=== PATIENT | male | born 1990 | race Caucasian/White ===

== ENCOUNTER 2018-11-01 23:22 | Emergency (ER) | payer SELFPAY ==
[2018-11-01 23:23] VITALS: BP 163/84; PULSE 88; RESP 18; TEMP 37; O2SAT 95; BMI 51.5
--- NOTE | 2018-11-02 00:21 | ED.DCSUM_ITS ---
- ER Visit Summary Date of Service: 11/02/18 Chief Complaint: Cough History of Present Illness: The patient is a 28 M who presents with a cough. Cough is been present for about 2 weeks. Over the last 3-4 days he is also developed muscle aches joint aches and diarrhea. He had a headache this morning that then improved today but is starting to come back. He currently rates his headache as a 5 or 6 out of 10. He complains of subjective fevers and sore throat. No chest pain no shortness of breath no vomiting or diarrhea. Physical Examination: Afebrile vitals notable for blood pressure 163/89 Moist mucous membranes Neck supple Heart regular rate and rhythm Lungs are clear Abdomen soft nontender Patient diaphoretic Alert Test Results: CBC BMP unremarkable. Rapid influenza negative. Chest x-ray normal. Emergency Department Course and Treatment: Patient was treated with IV fluids and Toradol. He is significantly improved on reevaluation. His headache is nearly resolved. He is resting comfortably. I discussed that this is most likely related to a viral syndrome. He was advised on supportive care. He understands to return for new or worsening symptoms. He was discharged. Treatment Plan: [] Disposition: Discharge Impression: Bronchitis This note was generated with [employer] dictation software. It may contain incorrect words, spelling, and punctuation that were not noted in review of the chart prior to signing ED Disposition - Plan for ED Patient: Referrals: Mj Monteiro MD [Primary Care Provider] -
[2018-11-02] MEDS: Ketorolac 30 MG/ML Syringe IV (00:36)
[2018-11-02] MEDS: 0.9% Normal Saline 1,000 ML 999 ML IV (00:36)
[2018-11-02 00:37] VITALS: RESP 18
[2018-11-02 00:41] LABS: Absolute Neutrophil Count 5.4 X10^3/uL (2.0-7.7); Basophil# 0.03 X10^3/uL; Basophil% 0.3 % (0-1); Eosinophil# 0.33 X10^3/uL; Eosinophils% 3.6 % (0-5); Hematocrit 43.8 % (40-54); Hemoglobin 14.3 g/dl (13.0-16.5); Lymphocyte % 30.6 % (19-41); Mean Corp Hgb Conc 32.6 g/gl (32-36); Mean Corpuscular Hgb 27.9 pg (27.0-32.0); Mean Corpuscular Volume 85.4 fL (80-94); Mean Platelet Vol. 9.8 fl (6.2-12.0); Monocyte# 0.54 X10^3/uL; Monocyte% 5.9 % (0-10); Neutrophil # 5.44 X10^3/uL (2.7-7.7); Neutrophil % 59.4 % (47-70); POSITIVE COUNT NO; POSITIVE DIFFERENTIAL NO; POSITIVE MORPHOLOGY NO; Platelet Count 167 K/mm3 (150-450); RBC Distribution Width CV 13.3 % (11.6-14.6); RBC Distribution Width SD 41.2 fl (35.1-43.9); Red Blood Count 5.13 M/mm3 (4.6-6.2); White Blood Count 9.2 K/mm3 (4.4-11.0)
--- NOTE | 2018-11-02 00:45 | RAD_ITS ---
STUDY: X-RAY CHEST REASON FOR EXAM: Male, 28 years old. Cough TECHNIQUE: 2 view COMPARISON: June 21, 2016 FINDINGS: The lungs are clear and expanded. There is no demonstrated pleural abnormality. Normal size heart. Normal mediastinum and sandra. Normal visualized pulmonary arteries. Normal visualized aortic arch and descending thoracic aorta. Normal visualized thoracic spine. Normal visualized ribs, clavicles, and shoulders. There is no demonstrated abnormality of the visualized soft tissue structures of the upper abdomen. RAD/Chest PA and Lateral IMPRESSION: Normal x-ray examination of the chest. No acute findings in the lungs Electronically Signed: Louis Nathan MD at 1:31 EDT Tel , Service support ,
[2018-11-02 01:08] LABS: BUN 15 mg/dL (7-18); Creatinine, Serum 0.81 mg/dL (0.70-1.30); EST Glomerular Filtration Rate 119 mL/min (>60); Est Glom Filt Rate - Afr Amer 144 mL/min (>60); Glucose 101 mg/dL (74-106)
[2018-11-02 01:09] LABS: Anion Gap 4 (5-15); BUN/Creat Ratio 18.4 RATIO (10-20); Calcium,Total 8.5 mg/dL (8.5-10.1); Chloride 110 mmol/L (98-107); Potassium 4.5 mmol/L (3.5-5.1); Sodium Level 139 mmol/L (136-145)
--- NOTE | 2018-11-02 02:00 | ED.DEP ---
ED Disposition - Plan for ED Patient: Instructions: Acute Bronchitis Referrals: Mj Monteiro MD [Primary Care Provider] -
[2018-11-02 02:06] VITALS: BP 110/59; PULSE 71; RESP 18; O2SAT 96
== END 2018-11-02 02:07 | disposition home or self-care (01) ==
LOC: ED 11-02 00:23
PROVIDERS: Emergency Provider Emergency Medicine; Family Provider Family Medicine; PCP Family Medicine
DX: J40 Bronchitis, not specified as acute or chronic (principal); Z68.43 Body mass index [BMI] 50.0-59.9, adult; E66.9 Obesity, unspecified; Z72.0 Tobacco use
CPT/HCPCS: 71046; 80048; 85025; 87804; 96361; 96374; 99284; A4216

== ENCOUNTER 2020-03-20 20:03 | Emergency (ER) | payer SELFPAY ==
[2020-03-20 20:04] VITALS: BP 165/106; PULSE 111; RESP 22; TEMP 36.6; O2SAT 96; BMI 55.7
--- NOTE | 2020-03-20 20:06 | EKG12_ITS ---
Test Reason : CP Blood Pressure : / mmHG Vent. Rate : 110 BPM Atrial Rate : 110 BPM P-R Int : 158 ms QRS Dur : 094 ms QT Int : 334 ms P-R-T Axes : 028 048 036 degrees QTc Int : 452 ms Sinus tachycardia Otherwise normal ECG Confirmed by MIQUEL SANCHEZ, VICKY ([id number]), desk editor KELLEY PARKER ([id number]) on 03/23/2020 2:34:32 PM Referred By: BB Confirmed By:VICKY LAFLEUR MD
--- NOTE | 2020-03-20 20:20 | RAD_ITS ---
STUDY: X-RAY CHEST REASON FOR EXAM: Male, 29 years old. chest pain x 2 hrs TECHNIQUE: Single AP portable view of the chest. COMPARISON: Prior study of 11/02/2018 FINDINGS: The lungs are clear and expanded. There is no demonstrated pleural abnormality. Normal size heart. Normal mediastinum and sandra. Normal visualized pulmonary arteries. Normal visualized aortic arch and descending thoracic aorta. Normal visualized thoracic spine. Normal visualized ribs, clavicles, and shoulders. There is no demonstrated abnormality of the visualized soft tissue structures of the upper abdomen. RAD/Chest 1 View (Portable) IMPRESSION: Normal x-ray examination of the chest. Electronically Signed: Declan Goodrich MD at 20:30 EDT , Service support ,
[2020-03-20 20:28] LABS: Absolute Neutrophil Count 6.3 X10^3/uL (2.0-7.7); Basophil# 0.04 X10^3/uL; Basophil% 0.4 % (0-1); Eosinophil# 0.28 X10^3/uL; Eosinophils% 2.8 % (0-5); Hematocrit 43.7 % (40-54); Hemoglobin 13.8 g/dL (13.0-16.5); Lymphocyte % 30.5 % (19-41); Mean Corp Hgb Conc 31.6 g/dL (32-36); Mean Corpuscular Hgb 27.2 pg (27.0-32.0); Mean Corpuscular Volume 86.2 fL (80-94); Mean Platelet Vol. 9.3 fl (6.2-12.0); Monocyte# 0.44 X10^3/uL; Monocyte% 4.3 % (0-10); NRBC Flagged by Analyzer 0 % (0-5); Neutrophil # 6.27 X10^3/uL (2.7-7.7); Neutrophil % 61.7 % (47-70); Platelet Count 159 K/mm3 (150-450); RBC Distribution Width CV 13.7 % (11.6-14.6); RBC Distribution Width SD 42.7 fl (35.1-43.9); Red Blood Count 5.07 M/mm3 (4.6-6.2); White Blood Count 10.2 K/mm3 (4.4-11.0)
--- NOTE | 2020-03-20 20:44 | ED.VIS.CHEST ---
History of Present Illness Chief Complaint: Chest Pain Informant: Patient Onset: Hours - 1 Activity at onset: - - Getting out of my truck Timing: - - Sudden onset, continuous, improving to the point of being off and on Quality: Sharp, Stabbing - Without radiation Location: Substernal Current Severity: Mild Maximum Severity: Severe Worsened By: Nothing, Breathing - Maybe a little while on my way here, not sure Relieved By: Nothing Associated Symptoms: Dyspnea, Acid Reflux - Metal taste in throat/mouth. Negative for: Nausea, Vomiting, Diaphoresis, Lightheadedness Narrative: Patient had severe sudden onset sharp stabbing pain. He felt a little short of breath. No recent illnesses. Patient presents during the national coronavirus emergency declaration/pandemic. He denies any known contact with anyone infected with COVID-19. He denies traveling out of the immediate area recently. He has a chronic smoker's cough that is no worse than usual, nonproductive, no hemoptysis. No leg pain or swelling recently. He has had acid reflux before but nothing like this. Prior Similar Symptoms: No Recent Illness/Hospitalization: No CVD Risk Factors: Smoking. Negative for: Hypertension, Diabetes, Hypercholesterolemia, Family History 1' </=55 PE Risk Factors: Negative for: Recent Travel/Surgery, Recenet Immobilization, Prior DVT or PE, Cancer, OCP + Smoking + >/=35 - Past Medical History (1) Obesity Status: Chronic (2) Sleep apnea Status: Chronic Past Medical History - Allergies and Home Meds Allergies/Adverse Reactions: Allergies No Known Allergies Allergy (Verified 03/20/20 20:05) Primary Care Physician: Mj Monteiro MD [Primary Care Provider] - Surgical History: no surgical history Lives: Spouse/ Significant Other Smoking Status: Current every day smoker Alcohol: Occasional - Couple beers earlier today Drugs: Cocaine - In the past, not recent - Family History Paternal Family History: Reports: No pertinent history Review of Systems General: Denies: Chills, Fever, Sweats Eyes: Denies: Visual changes - bilaterally, Diplopia ENT: Denies: Rhinorrhea, Sore throat Cardiovascular: Reports: Chest pain. Denies: Palpitations Respiratory: Reports: Dyspnea - Resolved, Cough - Chronic, unchanged. Denies: Sputum, Dyspnea on exertion, Orthopnea Gastrointestinal: Denies: Abdominal pain, Nausea, Vomiting, Diarrhea, Melena, Hematochezia Genitourinary: Denies: Dysuria, Hematuria, Frequency Musculoskeletal: Denies: Back pain, Swelling, Extremity Pain Skin: Denies: Rash, Wounds Neurological: Denies: Headache, Weakness, Numbness Physical Exam Vital Signs/Narrative: Vital Signs Temp Pulse Resp BP Pulse Ox 03/20/20 20:04 97.9 F 111 H 22 H 165/106 H 96 Inital Vital Signs reviewed: Yes General: Well nourished, Well developed, Obese - Really, No Acute Distress Head: Normocephalic, Atraumatic Eyes: Perrl, EOMI ENT: Moist mucous membranes, No rhinorrhea Neck: Supple, Nontender Cardiovascular: Regular rate, Regular rhythm, No murmurs, - - Equal 2+/4 radial pulses Respiratory: No distress, CTA bilaterally, Chest nontender Abdomen: Soft, Nontender, Nondistended, Normal bowel sounds Back: Nontender, Normal Inspection. Negative for: CVA tenderness Extremities: Nontender, No edema. Negative for: Calf Tenderness Skin: Normal color, No rash Neurological: Alert, Oriented x3, Cranial nerves II-XII grossly intact, Normal Strength, Normal Sensation Psychological: Normal affect, Normal Mood Diagnostic/Tx/Re-eval Impressions Chest X-Ray 03/20/20 20:20 IMPRESSION: Normal x-ray examination of the chest. Electronically Signed: Declan Goodrich MD at 20:30 EDT , Service support , Chest CTA 03/20/20 21:32 IMPRESSION: Normal CTA chest examination, without a demonstrated pulmonary embolism or arterial dissection. The study is limited secondary to suboptimal opacification of the pulmonary arterial system. Hepatic steatosis is noted. Electronically Signed: Declan Goodrich MD at 22:24 EDT , Service support , 03/20/20 20:20 Chest 1 View (Portable) [RAD] Stat 03/20/20 21:32 CTA Chest W/WO Contrast [CT] Stat Laboratory Results 03/20/20 03/20/20 03/20/20 20:18 20:18 21:05 WBC 10.2 RBC 5.07 Hgb 13.8 Hct 43.7 MCV 86.2 MCH 27.2 MCHC 31.6 L RDW Std Deviation 42.7 RDW Coeff of Kenneth 13.7 Plt Count 159 MPV 9.3 Immature Gran % (Auto) 0.300 Neut % (Auto) 61.7 Lymph % (Auto) 30.5 Sweet [place] % (Auto) 4.3 Eos % (Auto) 2.8 Baso % (Auto) 0.4 Absolute Neuts (auto) 6.3 Absolute Lymphs (auto) 3.10 Nucleated RBC % 0 PT 13.2 INR 1.0 D-Dimer Quant (PE/DVT) 0.62 H* Sodium 141 Potassium 3.6 Chloride 111 H Carbon Dioxide 25.0 Anion Gap 5 BUN 11 Creatinine 0.86 Estim Creat Clear Calc 133.77 Est GFR (MDRD) Af Amer 134 Est GFR (MDRD) Non-Af 111 BUN/Creatinine Ratio 12.8 Glucose 106 Calcium 8.9 Troponin I < 0.015 - Rhythm Strip Rhythm Strip: Sinus Tach Rate: 110 - EKG Initial EKG Interpretation: No Acute Injury Pattern, Sinus Tachycardia Treatment: GI Cocktail Repeat Eval: Pain Free [place] Risk: No Positive [place] Elements Score: 0 - Medical Decision Making Patient feels much better after GI cocktail, however his d-dimer came back nonspecifically elevated, therefore CT angiography was performed and that is unremarkable, essentially ruling out large pulmonary emboli. I do not think he has a small peripheral pulmonary embolus causing the central chest discomfort. Therefore think it is reasonable to discharge him home with a 2-week course of a PPI and close outpatient follow-up, questions answered at the bedside and they are comfortable with that plan. Of note, after the work-up was performed he learned that he was potentially inhaling some fumes from some chemicals but that was about an hour prior to the onset of pain, I reassured him I think is probably unrelated. ED Disposition - Plan for ED Patient: Disposition: Home or Assisted Living Diagnosis: Chest pain, atypical Instructions: ED Chest Pain NonCardiac Prescriptions: Pantoprazole Sodium [Protonix] 40 mg PO DAILY #14 tab Transmission Status: Pending to [facility]/pharmacy #[id number] Referrals: Mj Monteiro MD [Primary Care Provider] - 1 Week if not improving
[2020-03-20 20:49] LABS: Anion Gap 5 (5-15); BUN 11 mg/dL (7-18); BUN/Creat Ratio 12.8 RATIO (10-20); Calcium,Total 8.9 mg/dL (8.5-10.1); Chloride 111 mmol/L (98-107); Creatinine, Serum 0.86 mg/dL (0.70-1.30); EST Glomerular Filtration Rate 111 mL/min (>60); Est Glom Filt Rate - Afr Amer 134 mL/min (>60); Estimated Creatinine Clearance 133.77 ml/min; Glucose 106 mg/dL (74-106); Potassium 3.6 mmol/L (3.5-5.1); Sodium Level 141 mmol/L (136-145)
[2020-03-20] MEDS: Mag Hydrox/Al Hydrox/Simeth 30 ML UDC PO (20:59)
[2020-03-20 21:03] VITALS: BP 136/82; PULSE 95; RESP 12; O2SAT 96
[2020-03-20 21:25] LABS: Prothrombin Time (Protime)PT. 13.2 SECONDS (11.7-14.9)
[2020-03-20 21:30] LABS: D-Dimer Quantitative (DVT/PE) 0.62 FEU/ug/m (0.27-0.49)
--- NOTE | 2020-03-20 21:32 | CT_ITS ---
STUDY: CTA CHEST REASON FOR EXAM: Male, 29 years old. 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 Post-processing of the angiographic images was performed, with multiplanar reformation and 3D reconstruction. Individualized dose optimization techniques were used for this CT. COMPARISON: None. FINDINGS: There is limited enhancement of the main pulmonary artery and right and left pulmonary arteries. There is limited enhancement of the bilateral peripheral pulmonary arteries. There is no demonstrated pulmonary embolism. Normal thoracic aorta and visualized great vessels. There is no demonstrated aortic dissection. Normal heart and pericardium. Normal mediastinum. Normal hilar regions. Normal visualized trachea and bronchi. The lungs are well expanded. Normal pulmonary parenchyma. Normal pleura. Normal chest wall structures. Normal osseous structures. There is hepatic steatosis. CT/CTA Chest W/WO Contrast IMPRESSION: Normal CTA chest examination, without a demonstrated pulmonary embolism or arterial dissection. The study is limited secondary to suboptimal opacification of the pulmonary arterial system. Hepatic steatosis is noted. Electronically Signed: Declan Goodrich MD at 22:24 EDT , Service support ,
[2020-03-20 22:29] VITALS: BP 142/74; PULSE 84; RESP 13; O2SAT 95
[2020-03-20 23:08] VITALS: BP 125/54; PULSE 88; RESP 16; O2SAT 95
[2020-03-20 23:10] VITALS: BP 125/54; PULSE 88; RESP 15; O2SAT 96
[2020-03-20] MEDS: Pantoprazole Sodium 40 MG Tablet PO (23:27)
== END 2020-03-20 23:27 | disposition home or self-care (01) ==
PROVIDERS: Emergency Provider Emergency Medicine; PCP Family Medicine
DX: R07.89 Other chest pain (principal); E66.9 Obesity, unspecified
CPT/HCPCS: 71045; 71275; 80048; 84484; 85025; 85379; 85610; 93005; 99285; J7030; Q9967; A4216

== ENCOUNTER 2020-10-26 00:05 | Emergency (ER) | payer MEDICAID, SELFPAY ==
[2020-10-26 00:05] VITALS: BP 140/87; PULSE 94; RESP 18; TEMP 36.7; O2SAT 96; BMI 57.2
--- NOTE | 2020-10-26 00:09 | ED.VIS.GEN ---
History of Present Illness Chief Complaint: Lower Extremity Injury Informant: Patient Onset: Days Context: Gradual Onset Timing: Continuous Current Severity: Moderate Maximum Severity: Moderate Narrative: Patient is a 30-year-old male with history of GERD and obesity who presents to the emergency department with right lower extremity pain. He states over the past 3 days, he had some swelling in the leg. He states it started in the foot. Since then, he had some pain in the calf. He denies chest pain or shortness of breath. He states he was concerned he may have a blood clot. The patient has no history of prior DVT or pulmonary embolus. There is no family history of coagulopathy. He denies any trauma. He denies any fevers or chills. Prior similar symptoms: No Recent Illness/Hospitalization: No Past Medical History - Allergies and Home Meds Allergies/Adverse Reactions: Allergies No Known Allergies Allergy (Verified 03/20/20 20:05) Primary Care Physician: NOT,DEFINED [NON-STAFF] - Prior records reviewed: Yes Past Medical History: None Surgical History: no surgical history Smoking Status: Current every day smoker - Family History Paternal Family History: Reports: No pertinent history Review of Systems General: Denies: Chills, Fever, Sweats Eyes: Denies: Visual changes - bilaterally, Diplopia ENT: Denies: Rhinorrhea, Sore throat Cardiovascular: Denies: Chest pain, Palpitations Respiratory: Denies: Dyspnea, Cough, Dyspnea on exertion Gastrointestinal: Denies: Abdominal pain, Nausea, Vomiting, Diarrhea, Melena, Hematochezia Genitourinary: Denies: Dysuria, Hematuria, Frequency Musculoskeletal: Denies: Back pain, Extremity Pain Skin: Denies: Rash, Wounds Neurological: Denies: Headache, Weakness, Numbness Physical Exam Vital Signs/Narrative: Vital Signs Temp Pulse Resp BP Pulse Ox 10/26/20 00:05 98.0 F 94 18 140/87 H 96 Inital Vital Signs reviewed: Yes General: Well nourished, Well developed, No Acute Distress Head: Normocephalic, Atraumatic Eyes: Perrl, EOMI ENT: Moist mucous membranes, No rhinorrhea Neck: Supple, Nontender Cardiovascular: Regular rate, Regular rhythm, No murmurs Respiratory: No distress, CTA bilaterally, Chest nontender Abdomen: Soft, Nontender, Nondistended, Normal bowel sounds Back: Nontender, Normal Inspection Extremities: Tenderness - Patient is some tenderness in the posterior calf. There are multiple varicosities. There is no cellulitis. His pulses are normal. Skin: Normal color, No rash Neurological: Alert, Oriented x3, Cranial nerves II-XII grossly intact, Normal Strength, Normal Sensation Psychological: Normal affect, Normal Mood Diagnostic/Tx/Re-eval - Medical Decision Making Patient presents with right calf pain. He does have multiple varicosities and some tenderness in his calf. There is no cellulitis. His pulses are normal. Unfortunately, I do not have ultrasound available for DVT rule out at this time at night. I did obtain a D-dimer. This was within normal limits. I do not feel the patient needs acutely anticoagulated. The patient will be brought back for formal ultrasound in the morning for better delineation of his varicosities and to make sure he does not have a superficial phlebitis. He is comfortable with this plan of care. Impression 1. Right lower extremity edema ED Disposition - Plan for ED Patient: Instructions: ED Peripheral Edema, Bilateral Referrals: NOT,DEFINED [NON-STAFF] -
== END 2020-10-26 01:13 | disposition home or self-care (01) ==
LOC: ED 00:28
PROVIDERS: Emergency Provider Emergency Medicine
DX: R60.0 Localized edema (principal); M79.661 Pain in right lower leg; E66.9 Obesity, unspecified; F17.200 Nicotine dependence, unspecified, uncomplicated; Z68.43 Body mass index [BMI] 50.0-59.9, adult
CPT/HCPCS: 36415; 85379; 99282

== ENCOUNTER → 2020-10-27 14:27 | Outpatient (CLI) | payer MEDICAID, SELFPAY ==
[2020-10-26 00:05] VITALS: BMI 57.2
--- NOTE | 2020-10-27 14:30 | VDLE_ITS ---
Reason For Study: SWELLING RIGHT LEFT GSV is normal. GSV is normal. CFV is compressible, spontaneous, phasic, CFV is compressible, spontaneous, phasic, competent and demonstrates normal competent, and demonstrates normal augmentation. augmentation. FV is compressible, spontaneous, phasic, FV is compressible, spontaneous, phasic, competent and demonstrates normal competent and demonstrates normal augmentation. augmentation. POP V is compressible, spontaneous, phasic, POP V is compressible, spontaneous, phasic, competent and demonstrates normal competent and demonstrates normal augmentation. augmentation. T/P Trunk is compressible. T/P Trunk is compressible. PTV is compressible. PTV is compressible. RT PerV is compressible. LT PerV is compressible. Procedure This is a venous duplex using B-mode, color flow and spectral Doppler. Exam performed in department. The exam was diagnostic. Interpretation Summary No evidence for acute deep venous thrombosis bilateral lower extremities with patent and compressible bilateral great saphenous veins. Ordering Physician: Mekhi Garces Performed By: Minor Mejias RVT
== END ==
PROVIDERS: Visit Provider Emergency Medicine
DX: M79.89 Other specified soft tissue disorders (principal)
CPT/HCPCS: 93970

== ENCOUNTER 2020-12-28 23:16 | Emergency (ER) | payer MEDICAID, SELFPAY ==
[2020-12-28 23:18] VITALS: BP 148/90; PULSE 107; RESP 18; TEMP 36.3; O2SAT 94; BMI 59.5
--- NOTE | 2020-12-28 23:25 | RAD_ITS ---
STUDY: X-RAY - LEFT CALCANEUS REASON FOR EXAM: Male, 30 years old. Trauma. Jumped now having left heel pain. TECHNIQUE: 2 view(s) of the calcaneus were obtained. COMPARISON: None. FINDINGS: Normal visualized calcaneus. There is no acute fracture, dislocation or destructive osseous pathology. The subtalar articulation is normal. Normal soft tissue. RAD/Calcaneus min 2 Views IMPRESSION: Normal x-ray examination of the left calcaneus. Electronically Signed: Lee Crews DO at 23:48 EDT Tel [phone], Service support ,
--- NOTE | 2020-12-28 23:27 | ED.VIS.LOWEX ---
HPI History of Present Illness Chief Complaint: Lower Extremity Injury Narrative Narrative: Patient presents to the emergency department with left calcaneus pain and ankle pain after twisting it while trying to put a new liner on a swimming pool. No knee pain. No other injury. He is able to ambulate but with pain. PFSH PFS Home Medications NK 10/26/20 [History Last Taken Unknown] Allergy/AdvReac Type Severity Reaction Status Date / Time No Known Allergies Allergy Verified 03/20/20 20:05 Social History Smoking Status: Current every day smoker ROS ROS ED ROS Narrative Past medical history: none Medications: Reviewed Social history: Noncontributory Review of systems: Musculoskeletal: Calcaneus and ankle pain as in HPI Skin: No abrasions or lacerations Neurological: No weakness or paresthesias Hematologic: No easy bleeding or easy bruising EXAM Physical Exam Narrative Exam Narrative: Physical exam General: Patient is lying comfortably in bed Head: Normocephalic, Atraumatic Neck: No C-spine tenderness Cardiovascular: Regular rate, Regular rhythm Respiratory: No distress, CTA bilaterally Back: Nontender, Normal Inspection. Extremities: There is tenderness over the calcaneus but did not appreciate any pain when I laterally press on the calcaneus. There is also some ankle pain however this is diffuse throughout. Skin: No abrasions, no lacerations Neurological: Normal strength and sensation Const Vital Signs: 12/28/20 23:18 Temperature 97.4 F L Temperature Source Temporal Pulse Rate 107 H Respiratory Rate 18 Blood Pressure 148/90 H Blood Pressure Mean 109 Pulse Ox 94 Oxygen Delivery Method Room Air MDM MDM MDM Narrative Medical decision making narrative: Patient has normal x-rays. I will give him crutches and refer to podiatry since he had apparently has had calcaneus pain over the past few months. It is not at the plantar fascia insertion it is mostly in the middle of the calcaneus. Radiography Diagnostic Testing: Radiology Impression Os Calcis X-ray 12/28/20 23:25 IMPRESSION: Normal x-ray examination of the left calcaneus. Electronically Signed: Lee Crews DO at 23:48 EDT Tel [phone], Service support , Ankle X-Ray 12/28/20 23:29 IMPRESSION: Normal x-ray examination of the ankle. Electronically Signed: Lee Crews DO at 23:48 EDT Tel [phone], Service support , X-ray of the calcaneus and ankle read by myself and the radiologist does not show any fracture. Discharge Plan Triage Chief Complaint: Lower Extremity Injury ED Provider: Viraj Schofield Dx/Rx/DC Orders Prescriptions: No Action NK RF: 0 Primary Care Provider: Care Physician,No Primary
--- NOTE | 2020-12-28 23:29 | RAD_ITS ---
STUDY: X-RAY - LEFT ANKLE REASON FOR EXAM: Male, 30 years old. Trauma. TECHNIQUE: 3 view(s) of the ankle. COMPARISON: None. FINDINGS: Normal visualized distal tibia and fibula. Normal medial and lateral malleoli. Normal tibiotalar articulation and ankle mortise. Normal visualized talus and calcaneus. The visualized subtalar, talonavicular, calcaneocuboid and tarsal articulations are normal. The soft tissue structures are unremarkable. RAD/Ankle min 3 Views IMPRESSION: Normal x-ray examination of the ankle. Electronically Signed: Lee Crews DO at 23:48 EDT Tel [phone], Service support ,
[2020-12-29 00:11] VITALS: BP 138/71; PULSE 100; RESP 17; O2SAT 98
== END 2020-12-29 00:12 | disposition home or self-care (01) ==
PROVIDERS: Emergency Provider Emergency Medicine
DX: M79.672 Pain in left foot (principal)
CPT/HCPCS: 73610; 73650; 99283

== ENCOUNTER 2021-02-15 19:52 | Emergency (ER) | payer MEDICAID, SELFPAY ==
[2021-02-15 19:53] VITALS: BP 147/93; PULSE 116; RESP 20; TEMP 36.7; O2SAT 97; BMI 58.4
--- NOTE | 2021-02-15 20:11 | EKG12_ITS ---
Test Reason : DYSRHYTHMIA Blood Pressure : / mmHG Vent. Rate : 107 BPM Atrial Rate : 107 BPM P-R Int : 154 ms QRS Dur : 094 ms QT Int : 320 ms P-R-T Axes : 033 055 044 degrees QTc Int : 427 ms Sinus tachycardia Otherwise normal ECG Confirmed by CLAUDETTE SANCHEZ, ELIZABETH ([id number]), editor book BHUPINDER LOYOLA ([id number]) on 02/17/2021 11:48:28 AM Referred By: JOSHUA Confirmed By:ELIZABETH WILKINS MD
--- NOTE | 2021-02-15 20:12 | CT_ITS ---
STUDY: CTA CHEST REASON FOR EXAM: Male, 30 years old. Dyspnea. Shortness of breath for 5 days. Cough. Short substernal pain current everyday smoker. RADIATION DOSAGE (If Supplied By Facility): CTDIvol = ( 19.74 ) mGy, DLP = ( 755.52 ) mGycm TECHNIQUE: The examination was performed with the intravenous administration of IV 100mL Isovue-370. Post-processing of the angiographic images was performed, with multiplanar reformation and 3D reconstruction. Individualized dose optimization techniques were used for this CT. COMPARISON: None. FINDINGS: The study is limited due to patient habitus. Normal enhancement of the main pulmonary artery and right and left pulmonary arteries. Normal enhancement of the bilateral peripheral pulmonary arteries. There is no demonstrated pulmonary embolism. Normal thoracic aorta and visualized great vessels. There is no demonstrated aortic dissection. Normal heart and pericardium. Normal mediastinum. Normal hilar regions. Normal visualized trachea and bronchi. The lungs are well expanded. Normal pulmonary parenchyma. Normal pleura. Normal chest wall structures. Normal osseous structures. The spleen is enlarged but uniform in density. CT/CTA Chest W/WO Contrast IMPRESSION: 1. Normal CTA chest examination, without a demonstrated pulmonary embolism or arterial dissection. 2. No acute pulmonary disease. 3. Splenomegaly. The etiology is uncertain. Electronically Signed: Lee Crews DO at 21:44 EDT Tel [phone], Service support ,
--- NOTE | 2021-02-15 20:16 | ED.VIS.DYS ---
HPI History of Present Illness Chief Complaint: Shortness of Breath Informant: patient Onset/Context/Timing Onset: Days (5) Context: gradual Timing: Continuous Quality: Positive for Orthopnea Worsened by: - (Heat) Relieved by: - (Cool air) Associated Symptoms cough, rhinorrhea and yellow sputum; Negative for fever, sore throat or chills Narrative Narrative: Patient presents with shortness of breath that has been getting worse over the past 5 days. Patient states it is slightly worse whenever he lays flat. Patient states that his breathing is worse when he goes out in the heat. Patient states he gets better when he is in the cool air. Patient admits to a cough with some yellow sputum. Patient denies any fevers or chills. Patient states he has some sharp pain in the substernal area. Patient states this is worse with deep breathing. Patient denies any nausea or vomiting. Patient does admit to some rhinorrhea. PFSH PFSH no medical history Home Medications albuterol sulfate [Ventolin HFA] 1 - 2 puff INHALATION Q4H PRN PRN #1 inhaler 02/15/21 [Rx Last Taken Unknown] Allergy/AdvReac Type Severity Reaction Status Date / Time No Known Allergies Allergy Verified 02/15/21 19:55 no surgical history Social History Smoking Status: Current every day smoker tobacco type: cigarettes ROS ROS ED Constitutional Constitutional ED: Denies chills or fever(s) Eyes Eyes: Denies blurry vision or change in vision ENT ENT ED: Reports rhinorrhea; Denies sore throat Cardiovascular Cardiovascular: Reports chest pain; Denies palpitations Respiratory/Chest Respiratory/Chest: Reports cough, dyspnea and sputum Gastrointestinal Gastrointestinal: Denies nausea or vomiting Genitourinary Genitourinary ED: Denies dysuria or hematuria Musculoskeletal Musculoskeletal: Reports back pain; Denies neck pain Integumentary Denies abscess or rash Neurologic Neurologic: Reports headache(s); Denies weakness Allergic/Immunologic Allergic/Immunologic ED: Denies mouth swelling or urticaria EXAM Physical Exam Const Vital Signs: 02/15/21 19:53 02/15/21 20:18 02/15/21 20:25 Temperature 98.1 F Temperature Source Temporal Pulse Rate 116 H 118 H Respiratory Rate 20 H 22 H Respiratory Effort Short of Breath Short of Breath Respiratory Depth Shallow Respiratory Pattern Tachypnea Tachypnea Blood Pressure 147/93 H Blood Pressure Mean 111 Pulse Ox 97 95 Oxygen Delivery Method Room Air Room Air Room Air 02/15/21 21:55 Temperature Temperature Source Pulse Rate 93 Respiratory Rate 18 Respiratory Effort Respiratory Depth Respiratory Pattern Blood Pressure 116/62 Blood Pressure Mean 80 Pulse Ox 94 Oxygen Delivery Method Room Air Positive well nourished, well developed and obese General Appearance ED: well developed Nutritional Appearance: obese HEENT Reports moist mucous membranes Neck supple and no JVD Resp normal respiratory effort Auscultation: rhonchi throughout Cardio regular rhythm Rate: tachycardic GI non-tender and non-distended Auscultation: normoactive bowel sounds Palpation: soft Extremity normal to inspection General Extremety ED: Negative for edema or tenderness General Extremity: Negative for edema Neuro oriented x3, CN's II-XII intact bilaterally and no sensory deficits noted Sensorium / Orientation: alert Motor Exam: strength 5/5 throughout MDM MDM MDM Narrative Medical decision making narrative: EKG was obtained. On my interpretation, there is a sinus tachycardia with a rate of 107. There are no acute ST or T wave changes. MO interval, QRS interval, and QTc intervals are normal. Deshler is normal. CBC shows a slight leukocytosis of 12.7. Comprehensive metabolic profile was within normal limits. High-sensitivity troponin was normal. CTA of the chest was obtained. There is no evidence of pulmonary embolism or aortic dissection. There is no cardiopulmonary process noted. Patient was given a DuoNeb aerosol here. Patient was given IV fluids. Patient's heart rate improved. Patient is feeling better on reevaluation. Patient was advised of his findings. Lab Data Attestation: I reviewed the patient's lab results. Labs: Laboratory Results - last 24 hr 02/15/21 02/15/21 20:18 20:18 WBC 12.7 H RBC 5.69 Hgb 14.9 Hct 46.4 MCV 81.5 MCH 26.2 L MCHC 32.1 RDW Std Deviation 43.1 RDW Coeff of Kenneth 14.8 H Plt Count 189 MPV 9.0 Immature Gran % (Auto) 0.400 Neut % (Auto) 66.1 Lymph % (Auto) 27.9 Johnson % (Auto) 4.3 Eos % (Auto) 1.0 Baso % (Auto) 0.3 Absolute Neuts (auto) 8.4 H Absolute Lymphs (auto) 3.54 Nucleated RBC % 0 Sodium 137 Potassium 3.9 Chloride 105 Carbon Dioxide 25.0 Anion Gap 7 BUN 18 Creatinine 1.01 Estim Creat Clear Calc 112.87 Est GFR (MDRD) Af Amer 110 Est GFR (MDRD) Non-Af 91 BUN/Creatinine Ratio 17.8 Glucose 109 H Calcium 9.8 Total Bilirubin 0.50 AST 33 ALT 60 Alkaline Phosphatase 115 Troponin I High Sens 9.3 Total Protein 8.9 H Albumin 3.8 Globulin 5.1 H Albumin/Globulin Ratio 0.7 L Radiography Diagnostic Testing: Radiology Impression Chest CTA 02/15/21 20:12 IMPRESSION: 1. Normal CTA chest examination, without a demonstrated pulmonary embolism or arterial dissection. 2. No acute pulmonary disease. 3. Splenomegaly. The etiology is uncertain. Electronically Signed: Lee Crews DO at 21:44 EDT Tel [phone], Service support , EKG Initial EKG: Attestation: I personally reviewed and interpreted this EKG as follows: Interpretation: No Acute Injury Pattern and Sinus Tachycardia (107) Discharge Plan Triage Chief Complaint: Shortness of Breath ED Provider: Mike Nix Dx/Rx/DC Orders Clinical Impression: Viral URI Instructions: ED URI, Viral W/ Wheezing (Adult) Prescriptions: New albuterol sulfate [Ventolin HFA] 1 INHALER inhaler 1 - 2 puff inhalation Q4H PRN PRN (Reason: Wheezing) Qty: 1 RF: 0 Primary Care Provider: Care Physician,No Primary Referrals: Jimi Flynn III, MD [STAFF PHYSICIAN] - 5-7 Days Care Physician,No Primary [Primary Care Provider] - Disposition Disposition: Home, Self Care
[2021-02-15 20:18] VITALS: PULSE 118; RESP 20; RESP 22; O2SAT 95
[2021-02-15] MEDS: Ipratropium/Albuterol Sulfate 3 ML AMPUL.NEB INHALATION (20:18)
[2021-02-15 20:25] VITALS: O2SAT 96
[2021-02-15 20:31] LABS: Absolute Lymphocyte Count 3.54 X10^3/uL (0.83-4.51); Absolute Neutrophil Count 8.4 X10^3/uL (2.0-7.7); Basophil# 0.04 X10^3/uL; Basophil% 0.3 % (0-1); Eosinophil# 0.13 X10^3/uL; Hematocrit 46.4 % (40-54); Hemoglobin 14.9 g/dL (13.0-16.5); Lymphocyte # 3.54 X10^3/ul (0.83-4.51); Lymphocyte % 27.9 % (19-41); Mean Corp Hgb Conc 32.1 g/dL (32-36); Mean Corpuscular Hgb 26.2 pg (27.0-32.0); Mean Corpuscular Volume 81.5 fL (80-94); Monocyte# 0.55 X10^3/uL; Monocyte% 4.3 % (0-10); NRBC Flagged by Analyzer 0 % (0-5); Neutrophil # 8.39 X10^3/uL (2.7-7.7); Neutrophil % 66.1 % (47-70); Platelet Count 189 K/mm3 (150-450); RBC Distribution Width CV 14.8 % (11.6-14.6); RBC Distribution Width SD 43.1 fl (35.1-43.9); Red Blood Count 5.69 M/mm3 (4.6-6.2); White Blood Count 12.7 K/mm3 (4.4-11.0)
[2021-02-15] MEDS: 0.9% Normal Saline 1,000 ML 1000 ML IV (20:47)
[2021-02-15 20:51] LABS: ALB/GLOB Ratio 0.7 RATIO (0.9-2.4); AST(SGOT) 33 U/L (15-37); Alanine Aminotransfer ALT/SGPT 60 U/L (16-61); Albumin, Serum 3.8 g/dL (3.2-5.0); Alkaline Phosphatase 115 U/L (45-117); Anion Gap 7 (5-15); BUN 18 mg/dL (7-18); BUN/Creat Ratio 17.8 RATIO (10-20); Calcium,Total 9.8 mg/dL (8.5-10.1); Chloride 105 mmol/L (98-107); Creatinine, Serum 1.01 mg/dL (0.70-1.30); EST Glomerular Filtration Rate 91 mL/min (>60); Est Glom Filt Rate - Afr Amer 110 mL/min (>60); Estimated Creatinine Clearance 112.87 ml/min; Globulin 5.1 g/dL (2.2-4.2); Glucose 109 mg/dL (74-106); Potassium 3.9 mmol/L (3.5-5.1); Protein, Total 8.9 g/dL (6.4-8.2); Sodium Level 137 mmol/L (136-145); Troponin-I HS 9.3 pg/mL (3.0-78.5)
[2021-02-15 21:55] VITALS: BP 116/62; PULSE 93; RESP 18; O2SAT 94
[2021-02-15 22:34] VITALS: BP 114/66; PULSE 93; RESP 14; O2SAT 95
== END 2021-02-15 22:40 | disposition home or self-care (01) ==
PROVIDERS: Emergency Provider Emergency Medicine
DX: J06.9 Acute upper respiratory infection, unspecified (principal); F17.210 Nicotine dependence, cigarettes, uncomplicated; E66.9 Obesity, unspecified
CPT/HCPCS: 71275; 80053; 84484; 85025; 93005; 94640; 99251; 99285; J7030; Q9967; A4216; G0463

== ENCOUNTER 2021-04-25 11:49 | Emergency (ER) | payer MEDICAID, SELFPAY ==
[2021-04-25 11:50] VITALS: BP 136/83; PULSE 105; RESP 16; TEMP 36.4; O2SAT 97; BMI 59.4
--- NOTE | 2021-04-25 12:09 | EX.ED.UPPERE ---
HPI History of Present Illness Chief Complaint: Upper Extremity Injury Detail of Chief Complaint: Left hand laceration Informant: patient Onset/Context/Timing Onset: Today Current Severity: Mild Maximum Severity: Mild Narrative Narrative: Patient presents with a left hand laceration. He states he was working on his truck today when he cut his left hand. He is right-hand dominant. He is unsure of his last tetanus update. PFSH PFSH no medical history Home Medications albuterol sulfate [Ventolin HFA] 1 - 2 puff INHALATION Q4H PRN PRN #1 inhaler 02/15/21 [Rx Last Taken Unknown] Allergy/AdvReac Type Severity Reaction Status Date / Time No Known Allergies Allergy Verified 04/25/21 11:52 Social History Smoking Status: Current every day smoker tobacco type: cigarettes ROS ROS ED Constitutional Constitutional ED: Denies chills or fever(s) Eyes Eyes: Denies change in vision ENT ENT ED: Denies sore throat Cardiovascular Cardiovascular: Denies chest pain Respiratory/Chest Respiratory/Chest: Denies cough or dyspnea Gastrointestinal Gastrointestinal: Denies abdominal pain, diarrhea, nausea or vomiting Genitourinary Genitourinary ED: Reports dysuria Musculoskeletal Musculoskeletal: Denies back pain Integumentary Reports other Details: Left hand laceration ; Denies rash Neurologic Neurologic: Denies headache(s), paresthesias or weakness Allergic/Immunologic Allergic/Immunologic ED: Denies urticaria EXAM Physical Exam Const Vital Signs: 04/25/21 11:50 Temperature 97.5 F L Temperature Source Temporal Pulse Rate 105 H Respiratory Rate 16 Blood Pressure 136/83 H Blood Pressure Mean 100 Pulse Ox 97 Oxygen Delivery Method Room Air Positive well nourished and well developed General Appearance ED: well developed HEENT atraumatic Neck supple Chest Wall inspection of chest normal and palpation of chest normal Resp normal respiratory effort and clear to auscultation bilaterally Cardio regular rate and regular rhythm GI non-tender Palpation: soft Extremity Extremity Narrative: 1 cm linear laceration over the thenar eminence of the left hand. Full range of motion of all digits. Good cap refill. Neuro oriented x3, no focal motor deficits and no sensory deficits noted Sensorium / Orientation: alert Skin Skin Narrative: Laceration as above. MDM MDM MDM Narrative Medical decision making narrative: Tetanus update provided. Sutures placed in left hand laceration. Please see procedure note. Treatment and Re-Evaluation Comments:: Wound care as discussed. Patient is to have sutures removed in 1 week. Procedures Lacerations Left hand laceration: Length: 0.39 in Depth: Sub Q Prep: Shure-Clens Laceration repair: Irrigated, Lidocaine and Local Number of Sutures/Sen: 2 Suture Information: Ethilon, Simple and 4-0 Discharge Plan Triage Chief Complaint: Upper Extremity Injury ED Provider: Rebekah Cardenas Dx/Rx/DC Orders Clinical Impression: Hand laceration Instructions: ED Laceration, Hand: All Closures Prescriptions: No Action albuterol sulfate [Ventolin HFA] 1 INHALER inhaler 1 - 2 puff inhalation Q4H PRN PRN (Reason: Wheezing) Qty: 1 RF: 0 Primary Care Provider: Care Physician,No Primary Referrals: Shanika Paredes MD [STAFF PHYSICIAN] - 7 Days for suture removal Care Physician,No Primary [Primary Care Provider] - Disposition Disposition: Home, Self Care
[2021-04-25] MEDS: Diphth,Pertuss(Acell),Tet Vac 0.5 ML Vial IM (12:29)
[2021-04-25 13:00] VITALS: RESP 18
[2021-04-25] MEDS: Lidocaine 1% (20 ml mdv) 20 ML Vial INFILT (13:00)
--- NOTE | 2021-04-25 13:02 | ED.RN ---
pt observed for shot time greater than 15 minutes no reaction noted by this rn. pt d/c.
== END 2021-04-25 13:02 | disposition home or self-care (01) ==
LOC: ED 13:00
PROVIDERS: Emergency Provider Emergency Medicine
DX: S61.412A Laceration without foreign body of left hand, initial encounter (principal); W45.8XXA Other foreign body or object entering through skin, initial encounter; Y93.89 Activity, other specified; Y92.9 Unspecified place or not applicable; Y99.8 Other external cause status; F17.210 Nicotine dependence, cigarettes, uncomplicated
CPT/HCPCS: 12001; 90471; 90715; 99284

== ENCOUNTER → 2023-03-02 | Outpatient (CLI) | payer MEDICAID, SELFPAY ==
[2023-03-02 12:22] LABS: Absolute Lymphocyte Count 2.22 X10^3/uL (0.83-4.51); Basophil# 0.03 X10^3/uL; Basophil% 0.3 % (0-1); Eosinophil# 0.19 X10^3/uL; Eosinophils% 2.2 % (0-5); Hematocrit 41.9 % (40-54); Hemoglobin 12.8 g/dL (13.0-16.5); Lymphocyte # 2.22 X10^3/ul (0.83-4.51); Lymphocyte % 25.3 % (19-41); Mean Corp Hgb Conc 30.5 g/dL (32-36); Mean Corpuscular Hgb 26.2 pg (27.0-32.0); Mean Corpuscular Volume 85.7 fL (80-94); Mean Platelet Vol. 9.8 fl (6.2-12.0); Monocyte# 0.36 X10^3/uL; Monocyte% 4.1 % (0-10); NRBC Flagged by Analyzer 0 % (0-5); Neutrophil # 5.97 X10^3/uL (2.7-7.7); Neutrophil % 67.9 % (47-70); Platelet Count 152 K/mm3 (150-450); RBC Distribution Width CV 15.3 % (11.6-14.6); RBC Distribution Width SD 47.6 fl (35.1-43.9); Red Blood Count 4.89 M/mm3 (4.6-6.2); White Blood Count 8.8 K/mm3 (4.4-11.0)
[2023-03-02 13:06] LABS: Hemoglobin A1c 5.4 % (3.8-5.6)
[2023-03-02 13:07] LABS: Vitamin D,25 Hydroxy 31.4 ng/mL
[2023-03-02 13:17] LABS: ALB/GLOB Ratio 0.6 RATIO (0.9-2.4); AST(SGOT) 34 U/L (15-37); Alanine Aminotransfer ALT/SGPT 58 U/L (16-61); Albumin, Serum 2.8 g/dL (3.2-5.0); Alkaline Phosphatase 97 U/L (45-117); Anion Gap 5 (5-15); BUN 10 mg/dL (7-18); BUN/Creat Ratio 12.4 RATIO (10-20); Calcium,Total 8.5 mg/dL (8.5-10.1); Chloride 109 mmol/L (98-107); Cholesterol 125 mg/dL (200); Creatinine, Serum 0.81 mg/dL (0.70-1.30); EST Glomerular Filtration Rate 117 mL/min (>60); Est Glom Filt Rate - Afr Amer 141 mL/min (>60); Free T3 3.1 pg/mL (2.18-3.98); Globulin 4.9 g/dL (2.2-4.2); Glucose 99 mg/dL (74-106); High Density Lipoprotein 32 mg/dL; Potassium 4.3 mmol/L (3.5-5.1); Protein, Total 7.7 g/dL (6.4-8.2); Sodium Level 141 mmol/L (136-145); T4 Free Direct 1.23 ng/dL (0.76-1.46); Triglycerides 86 mg/dL; Very Low Density Lipoprotein 17 mg/dL (5-40)
== END | disposition home or self-care (01) ==
PROVIDERS: PCP Internal Medicine; Referring Provider Internal Medicine; Visit Provider Internal Medicine
DX: G47.30 Sleep apnea, unspecified (principal); J20.9 Acute bronchitis, unspecified; E66.9 Obesity, unspecified; E88.81 Metabolic syndrome and other insulin resistance; E55.9 Vitamin D deficiency, unspecified; R73.9 Hyperglycemia, unspecified; Z13.220 Encounter for screening for lipoid disorders
CPT/HCPCS: 95801; 36415; 80053; 80061; 82306; 83036; 83525; 84439; 84443; 84481; 85025; 95806

== ENCOUNTER → 2023-03-07 | Outpatient (CLI) | payer MEDICAID, SELFPAY | END | disposition home or self-care (01) | LOC: SL 21:07 | PROVIDERS: PCP Internal Medicine; Visit Provider Internal Medicine | DX: G47.33 Obstructive sleep apnea (adult) (pediatric) (principal) | CPT/HCPCS: 95811 ==

== ENCOUNTER → 2023-03-20 | Outpatient (CLI) | payer MEDICAID, SELFPAY | END | disposition home or self-care (01) | LOC: SL 08:49 | PROVIDERS: PCP Internal Medicine; Visit Provider Nurse Practitioner Acute Care | DX: Z46.89 Encounter for fitting and adjustment of other specified devices (principal) ==

== ENCOUNTER 2023-03-26 19:39 | Emergency (ER) | payer MEDICAID, SELFPAY ==
[2023-03-26 19:41] VITALS: BP 157/98; PULSE 83; RESP 18; TEMP 36.2; O2SAT 97; BMI 66.9
--- NOTE | 2023-03-26 20:06 | EDS_ITS ---
HPI History of Present Illness Chief Complaint: Dental Detail of Chief Complaint: Dental pain Narrative Narrative: Patient presents with dental pain that started few days ago. He had a broken right lower molar. Patient has been seen by dentist and caitlin and was referred to [facility] but states that has been unable to follow-up as he has been working. He denies any fevers or chills or sweats. PFSH PFSH Home Medications albuterol sulfate 90 mcg/actuation aerosol inhaler (Ventolin HFA) 1 - 2 puff inhalation Q4H PRN PRN Wheezing ##1 02/16/23 [Rx Last Taken Unknown] clindamycin HCl 300 mg capsule (Cleocin HCl) 300 mg PO Q6H #40 CAPSULES 03/26/23 [Rx Last Taken Unknown] hydrocodone-acetaminophen 5-325mg 5mg-325mg 1 tab PO Q4H PRN PRN Pain 2 days #14 TABLETS 03/26/23 [Rx Last Taken Unknown] Allergy/AdvReac Type Severity Reaction Status Date / Time No Known Allergies Allergy Verified 03/26/23 19:43 Social History adopted: No household members: family housing: house number of children: 3 current occupational status: employed 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: No pets and animals: Yes pets and animals: dog(s) leisure activities: other history of recent travel: No sexually active: Yes Smoking Status: Current every day smoker tobacco type: cigarettes second hand exposure: Yes alcohol intake: current details: occasionally substance use type: former substance user well-balanced diet: rarely or never caffeine: Yes eating out: 1-3 times/week during the past year weight has: increased > 10 lbs what type of physical activity do you participate in: none seatbelt use: never do you feel safe at home: Yes ROS ROS ED Review of Systems ROS Unobtainable: other Constitutional Constitutional ED: Reports lethargy; Denies chills, fever(s), sweats or weight loss Eyes Eyes: Denies blurry vision, change in vision or diplopia ENT ENT ED: Reports other Details: Dental pain ; Denies rhinorrhea or sore throat Cardiovascular Cardiovascular: Denies chest pain, orthopnea or racing heartbeat Respiratory/Chest Respiratory/Chest: Denies cough, dyspnea, dyspnea on exertion, orthopnea or sputum Gastrointestinal Gastrointestinal: Denies abdominal pain, diarrhea, nausea or vomiting Genitourinary Genitourinary ED: Denies dysuria, hematuria or urinary frequency Musculoskeletal Musculoskeletal: Denies arthralgias, back pain, myalgias or neck pain Integumentary Denies abscess, Abrasions or rash Neurologic Neurologic: Denies headache(s) or weakness Psychiatric Psychiatric: Denies anxiety, depression or suicidal thoughts Endocrine Endocrinology: Denies polydipsia, polyphagia or polyuria Hematologic/Lymphatic Hematologic/Lymphatic: Denies easy bleeding, easy bruising or lymphadenopathy Allergic/Immunologic Allergic/Immunologic ED: Denies mouth swelling, tongue swelling or urticaria EXAM Physical Exam Const Vital Signs: 03/26/23 19:41 Temperature 97.2 F L Temperature Source Temporal Pulse Rate 83 Respiratory Rate 18 Blood Pressure 157/98 H Blood Pressure Mean 117 Pulse Ox 97 Oxygen Delivery Method Room Air Positive well nourished and well developed General Appearance ED: well developed and NAD HEENT Reports TM's clear and moist mucous membranes HEENT Narrative: Dentition-patient has a broken and carried tooth #30 that is tender to palpation. There is no gingival abscess noted. No facial cellulitis or erythema. Uvula midline. No trismus. normocephalic and atraumatic; Negative for trauma or tenderness Tympanic Membrane ED: Yes TM's clear Eyes PERRL and EOMs intact bilaterally General Eye ED: Negative for pale conjunctiva or scleral icterus Neck no lymphadenopathy, supple and no JVD General: Negative for tenderness Chest Wall inspection of chest normal and palpation of chest normal Chest: Negative for tenderness Resp normal respiratory effort and clear to auscultation bilaterally Effort and Inspection: Negative for respiratory distress or pain with movement Auscultation: Negative for rhonchi, wheezes or diminished lung sounds Cardio regular rate, regular rhythm, S1 normal heart sound, S2 normal heart sound and no murmurs Peripheral Pulses: pulses 2+ throughout GI normal to inspection, nondistended, normoactive bowel sounds, soft to palpation, non-tender, non-distended and no masses Back/Spine no CVA tenderness and no thoracic nor lumbar tenderness Extremity normal to inspection General Extremety ED: Negative for edema General Extremity: Negative for edema Neuro oriented x3, CN's II-XII intact bilaterally, no sensory deficits noted and gait normal Sensorium / Orientation: awake, alert, oriented to person, oriented to place and oriented to time Motor Exam: strength 5/5 throughout and strength abnormal Psych mental status grossly normal Skin no rashes or lesions noted and no wounds MDM MDM MDM Narrative Medical decision making narrative: I have personally performed a face to face assessment of the patient and have reviewed the GURJIT Note. I performed a substantive portion of the visit including all aspects of the following. My benavides findings include: History is [patient presents with dental pain for several days. He had a broken tooth right lower molar for months. Patient went to [facility] and they referred him to a dentist in [place] but he has been working and has not had time to follow-up. Patient denies fevers or chills or sweats.] Exam is [HEENT-PERRLA, EOMI. Cranial nerves II through XII grossly intact. TMs clear. Mucous membranes moist. No adenopathy. Dentition-patient has a broken and tender right lower molar tooth #30. No gingival erythema or abscess noted. Cardiovascular-regular rate and rhythm without murmur or ectopy Lungs-clear to auscultation, chest wall stable without crepitus or subcu emphysema Abdomen-normoactive bowel sounds, soft, nontender, no rebound or rigidity, no peritoneal signs. Extremities-intact ?4, normal range of motion, normal pulses, atraumatic] Medical Decison Making [patient will be referred to a dentist. He will be given a prescription for clindamycin and a few [place] for pain.] Other additions or changes: [None] Discharge Plan Triage Chief Complaint: Dental ED Midlevel Provider: Bailey Xie ED Provider: Santhosh Castle Dx/Rx/DC Orders Clinical Impression: Dental caries, Pain, dental Instructions: ED Dental Pain Prescriptions: New clindamycin HCl [Cleocin HCl] 300 mg capsule 300 mg PO Q6H Qty: 40 0RF hydrocodone-acetaminophen [hydrocodone-acetaminophen] 5-325 mg tablet 1 tab PO Q4H PRN PRN (Reason: Pain) 2 Days Qty: 14 0RF No Action albuterol sulfate [Ventolin HFA] 90 mcg/actuation HFA aerosol inhaler 1 - 2 puff inhalation Q4H PRN PRN (Reason: Wheezing) Qty: 1 3RF Primary Care Provider: Maddison Caldwell Referrals: Maddison Caldwell MD [Primary Care Provider] - Disposition Disposition: Home, Self Care Discharge Date/Time: 03/26/23 20:23
[2023-03-26] MEDS: Ibuprofen 600 MG Tablet PO (20:17)
[2023-03-26] MEDS: Penicillin Vk 250 MG Tablet 500 MG PO (20:18)
[2023-03-26 20:22] VITALS: BMI 67.1
== END 2023-03-26 20:26 | disposition home or self-care (01) ==
LOC: ED 20:16
PROVIDERS: Emergency Provider Emergency Medicine; PCP Internal Medicine; Visit Provider Emergency Medicine
DX: K02.9 Dental caries, unspecified (principal); K08.89 Other specified disorders of teeth and supporting structures; F17.210 Nicotine dependence, cigarettes, uncomplicated
CPT/HCPCS: 99283

== ENCOUNTER 2023-07-28 08:03 | Emergency (ER) | payer MEDICAID, SELFPAY ==
[2023-07-28 08:03] VITALS: BP 148/88; PULSE 77; RESP 20; TEMP 35.3; O2SAT 96
--- NOTE | 2023-07-28 08:12 | ED.VIS.LOWEX ---
HPI History of Present Illness HPI Narrative: 33-year-old male history of lower leg varicose veins. Today get out of shower does not believe the hit it or caught on anything and it started bleeding. They are having trouble getting it stopped so they came in the emergency department. He denies any other complaints. He is on no blood thinners. He denies any recent nosebleeds, hematemesis nor melena or hematuria. Denies any easy bruising. Chief Complaint: Wound Informant: patient Occured/Mechanism Mechanism/Context: No injury and No blunt trauma Onset/Context/Timing Onset: Today Context: Sudden Onset Timing: Continuous Current Severity: Gone Maximum Severity: Moderate Narrative Narrative: 33-year-old male bleeding varicose vein left lower leg. Prior similar symptoms: No Recent Illness/Hospitalization: No PFSH PFSH Medical History no medical history no medical history Home Medications hydrocodone-acetaminophen 5-325mg 5mg-325mg 1 tab PO Q4H PRN PRN Pain 2 days #14 TABLETS 03/26/23 [Rx Last Taken Unknown] albuterol sulfate 90 mcg/actuation aerosol inhaler (Ventolin HFA) 1 - 2 puff inhalation Q4H PRN PRN Wheezing ##1 03/29/23 [Rx Last Taken Unknown] Allergy/AdvReac Type Severity Reaction Status Date / Time clindamycin Allergy Severe Other Verified 03/29/23 09:59 Social History adopted: No household members: family housing: house number of children: 3 current occupational status: employed 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: No pets and animals: Yes pets and animals: dog(s) leisure activities: other history of recent travel: No sexually active: Yes Smoking Status: Current every day smoker tobacco type: cigarettes second hand exposure: Yes alcohol intake: current details: occasionally substance use type: former substance user well-balanced diet: rarely or never caffeine: Yes eating out: 1-3 times/week during the past year weight has: increased > 10 lbs what type of physical activity do you participate in: none seatbelt use: never do you feel safe at home: Yes ROS ROS ED ROS Narrative Recent URI a week ago that is resolving. Review of Systems ROS Unobtainable: Denies due to encephalopathy Constitutional Constitutional ED: Denies chills or fever(s) Eyes Eyes: Denies blurry vision ENT ENT ED: Denies ear pain Cardiovascular Cardiovascular: Denies chest pain Respiratory/Chest Respiratory/Chest: Reports cough Gastrointestinal Gastrointestinal: Denies abdominal pain, diarrhea, nausea or vomiting Genitourinary Genitourinary ED: Denies dysuria or hematuria Musculoskeletal Musculoskeletal: Denies arthralgias Integumentary Denies abscess Neurologic Neurologic: Denies headache(s) Psychiatric Psychiatric: Denies anxiety Endocrine Endocrinology: Denies polydipsia or polyphagia Hematologic/Lymphatic Hematologic/Lymphatic: Denies easy bleeding, easy bruising or lymphadenopathy Allergic/Immunologic Allergic/Immunologic ED: Denies mouth swelling, tongue swelling or urticaria EXAM Physical Exam Narrative Exam Narrative: 33-year-old male vital signs stable afebrile. No distress. HEENT exam unremarkable. Lungs coarse breath sounds. Dry cough. No rhonchi or rales. Equal and symmetrical. Heart regular rhythm rate about 80 no murmur. Chest wall nontender. Abdomen soft nontender. Moving all 4 extremities. Left lower leg medially several inches above the medial malleolus there is an area of varicose vein that was bleeding currently there is no active bleeding. He had an Dilip wrap on it holding direct pressure. Otherwise both lower extremities are neurovascularly intact. He is awake and alert no focal motor deficits. Const Vital Signs: 07/28/23 08:03 Temperature 95.6 F L Temperature Source Temporal Pulse Rate 77 Respiratory Rate 20 H Blood Pressure 148/88 H Blood Pressure Mean 108 Pulse Ox 96 Oxygen Delivery Method Room Air Positive well nourished, well developed and obese; Negative for cachectic, contractures or unkempt General Appearance ED: well developed and NAD; Negative for unkempt, cachectic or contractures Nutritional Appearance: obese; Negative for cachectic HEENT Reports moist mucous membranes normocephalic and atraumatic; Negative for trauma or tenderness Eyes PERRL General Eye ED: Negative for other Neck full ROM and supple Thyroid: Negative for tender Lymph Lymphatic: Negative for other Chest Wall inspection of chest normal and palpation of chest normal Chest: Negative for other Resp normal respiratory effort, no retractions and No clear to auscultation bilaterally Resp Narrative: Coarse breath sounds. Few scattered wheezes. Effort and Inspection: Negative for pain with movement Auscultation: Negative for rales or rhonchi Cardio regular rate, regular rhythm, S1 normal heart sound, S2 normal heart sound and no murmurs Rate: Negative for bradycardia or tachycardic Rhythm: Negative for abnormal rhythm Bruits: Negative for other GI non-tender, non-distended and no masses Inspection: Negative for abdominal distention Auscultation: normoactive bowel sounds Palpation: soft; Negative for tender, guarding or rebound tenderness present Back/Spine no CVA tenderness Extremity normal to inspection and full ROM Extremity Narrative: Left lower leg prior bleeding at the site where there is a varicose vein. Currently there is no active bleeding. General Extremety ED: Negative for weight-bearing difficulty General Extremity: Negative for weight-bearing difficulty Neuro oriented x3 and CN's II-XII intact bilaterally Sensorium / Orientation: alert, oriented to person, oriented to place and oriented to time; Negative for orientation impaired, confused, lethargic or stuporous Motor Exam: strength 5/5 throughout Psych mental status grossly normal Appearance: Negative for unkempt Speech: No other Mood & Affect: Negative for anxious Skin no wounds Lesions: no lesions Rashes: no rashes MDM MDM MDM Narrative Medical decision making narrative: 33-year-old male with a bleeding varicose vein. Currently is resolved. Will apply let Surgicel and direct pressure reevaluated and he will be discharged home if the bleeding does not restart. Repeat exam patient doing well at 8:49 AM. Currently there is no bleeding. Dressing in place. Will walk him if it does not restart bleeding and be discharged home. Dressing off tomorrow. Direct pressure if bleeds. If unable to stop return. History & Record Review Discussion w/independent historian: Patient Additional record(s) reviewed:: Prior inpatient record, Prior outpatient record, Prior ED visit and Prior labs Discharge Plan Triage Chief Complaint: Wound ED Provider: Raoul Angel Dx/Rx/DC Orders Clinical Impression: Bleeding from varicose veins of left lower extremity Instructions: Spider and Varicose Veins Prescriptions: No Action hydrocodone-acetaminophen [hydrocodone-acetaminophen] 5-325 mg tablet 1 tab PO Q4H PRN PRN (Reason: Pain) 2 Days Qty: 14 0RF albuterol sulfate [Ventolin HFA] 90 mcg/actuation HFA aerosol inhaler 1 - 2 puff inhalation Q4H PRN PRN (Reason: Wheezing) Qty: 1 3RF Primary Care Provider: Maddison Caldwell Referrals: Maddison Caldwell MD [Primary Care Provider] - As Needed Activity Restrictions/Additional Instructions: If rebleeds hold direct pressure for an hour. If unable to stop return. Avoid aspirin and Motrin the next several days because it can increase your risk of bleeding. Disposition Disposition: Home, Self Care
[2023-07-28] MEDS: Lidocaine/Epi/Tetracaine 50 ML 1 APPLIC TOPICAL (08:20)
== END 2023-07-28 09:11 | disposition home or self-care (01) ==
PROVIDERS: Emergency Provider Emergency Medicine; PCP Internal Medicine; Visit Provider Emergency Medicine
DX: I83.892 Varicose veins of left lower extremity with other complications (principal); F17.210 Nicotine dependence, cigarettes, uncomplicated
CPT/HCPCS: 99282

== ENCOUNTER 2024-05-10 19:52 | Emergency (ER) | payer MEDICAID, SELFPAY ==
[2024-05-10] VITALS (8 sets, daily range): BP systolic 94–168; BP diastolic 63–98; PULSE 105–119; RESP 18–22; TEMP 37–37.1; O2SAT 91–97
--- NOTE | 2024-05-10 20:04 | EKG12_ITS ---
Test Reason : CP Blood Pressure : / mmHG Vent. Rate : 107 BPM Atrial Rate : 107 BPM P-R Int : 162 ms QRS Dur : 098 ms QT Int : 318 ms P-R-T Axes : 045 077 064 degrees QTc Int : 424 ms Sinus tachycardia Otherwise normal ECG Confirmed by MIQUEL SANCHEZ, VICKY ([id number]), book or script editor DIA BEGUM ([id number]) on 05/14/2024 10:05:06 AM Referred By: Confirmed By:VICKY LAFLEUR MD
[2024-05-10 20:26] LABS: Absolute Lymphocyte Count 1.06 X10^3/uL (0.83-4.51); Absolute Neutrophil Count 6.2 X10^3/uL (2.0-7.7); Basophil# 0.02 X10^3/uL; Basophil% 0.3 % (0-1); Eosinophil# 0.11 X10^3/uL; Eosinophils% 1.4 % (0-5); Hematocrit 40.7 % (40-54); Hemoglobin 12.3 g/dL (13.0-16.5); Lymphocyte # 1.06 X10^3/ul (0.83-4.51); Lymphocyte % 13.4 % (19-41); Mean Corp Hgb Conc 30.2 g/dL (32-36); Mean Corpuscular Hgb 24.5 pg (27.0-32.0); Mean Corpuscular Volume 81.1 fL (80-94); Mean Platelet Vol. 9.2 fl (6.2-12.0); Monocyte# 0.43 X10^3/uL; Monocyte% 5.4 % (0-10); NRBC Flagged by Analyzer 0 % (0-5); Neutrophil # 6.24 X10^3/uL (2.7-7.7); Neutrophil % 79.1 % (47-70); Platelet Count 142 K/mm3 (150-450); RBC Distribution Width CV 15.8 % (11.6-14.6); RBC Distribution Width SD 46.4 fl (35.1-43.9); Red Blood Count 5.02 M/mm3 (4.6-6.2); White Blood Count 7.9 K/mm3 (4.4-11.0)
[2024-05-10] MEDS: Albuterol 2.5 MG/3 ML VIAL.NEB. 5 MG INHALATION (20:38)
--- NOTE | 2024-05-10 20:38 | EDS_ITS ---
HPI <RICO Azar - Last Filed: 05/10/24 22:29> History of Present Illness Chief Complaint: General Illness Narrative Narrative: Patient is a 33-year-old male with history of morbid obesity, tobacco use, obstructive sleep apnea presents to the emergency department 2 days of worsening shortness of breath, chest pain, cough, fever and chills. Per the , the patient's daughter is also ill however she is improving. Patient today was having worsening body aches, worsening short of breath and went to urgent care, urgent care sent him to the emergency department. Urgent care did not perform any testing, however patient dates he did take Tylenol earlier today. Patient states yesterday he was only able to smoke 5 cigarettes. [facility] <RICO Azar - Last Filed: 05/10/24 22:29> [facility] Medical History (Updated 05/11/24 @ 00:[address] Mike Nix, DO) Chest pain MARIA TERESA (obstructive sleep apnea) Home Medications ?Medication ?Instructions ?Recorded ?Last Taken ?Type albuterol sulfate 90 mcg/actuation 1 - 2 puff inhalation Q4H PRN PRN 03/29/23 Unknown Rx aerosol inhaler (Ventolin HFA) Wheezing ##1 bipap machine 05/08/24 Unknown History azithromycin 250 mg tablet 250 mg PO DAILY #4 TABLETS 05/11/24 Unknown Rx Allergy/AdvReac Type Severity Reaction Status Date / Time clindamycin Allergy Severe Other Verified 05/10/24 19:53 Social History (Updated 05/08/24 @ 16:05 by Carla Hull RN) adopted: No household members: family housing: house number of children: 3 current occupational status: employed 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[employer] current occupational exposures/hazards: No pets and animals: Yes pets and animals: dog(s) leisure activities: other history of recent travel: No sexually active: Yes Smoking Status: Current every day smoker tobacco type: cigarettes second hand exposure: Yes alcohol intake: former details: occasionally substance use type: former substance user well-balanced diet: rarely or never caffeine: Yes eating out: 1-3 times/week during the past year weight has: increased > 10 lbs what type of physical activity do you participate in: none seatbelt use: never do you feel safe at home: Yes ROS <RICO Azar - Last Filed: 05/10/24 22:29> ROS ED ROS Narrative Constitutional: Negative for weight loss, weakness. Positive for fever and chills Eyes: Negative for vision loss, vision change, double vision ENT: Negative for any sore throat, ear pain, congestion Cardiovascular: Negative for any palpitations. Positive chest pain, chest tightness Respiratory: Negative for any sputum production, hemoptysis. Positive for cough, dyspnea, dyspnea on exertion, orthopnea Gastrointestinal: Negative for any abdominal pain, nausea, vomiting, diarrhea, constipation, blood in stool, blood in vomit : Negative for any urinary frequency, dysuria, retention, blood in urine Muscle skeletal: Negative for any neck pain, back pain . Positive generalized myalgias Neurological: Negative for any headache, syncope, dizziness Skin: Negative for any rashes, itching, abrasions, lacerations Psychiatric: Negative for any depression, anxiety, stress, suicidal ideation, homicidal ideation Hematologic: Negative for any excessive bruising, easy bleeding EXAM <RICO Azar - Last Filed: 05/10/24 22:29> Physical Exam Narrative Exam Narrative: Vital signs reviewed. Patient does have some tachypnea, heart rate is 105, patient is 96% on room air. HEET: Head normocephalic atraumatic, TMs clear bilaterally. Posterior pharynx is clear, moist mucous membranes. Nares clear bilaterally. Neck: Supple with no lymphadenopathy or tenderness. No signs of meningismus. Cardiac: Regular rate and rhythm no murmurs gallops or rubs, equal peripheral pulses bilaterally. Difficult secondary to body habitus Respiratory: Expiratory wheezes throughout pulmonary exam. No chest tenderness. Abdomen: Soft, nontender, nondistended. No abdominal bruit or pulsatile masses. No hepatosplenomegaly Extremities: Patient has chronic vascular changes to bilateral lower legs. No signs of gross trauma or deformity. Active full range of motion of all extremities. Neuro: Cranial nerves II through XII intact, no focal neurological deficits. Skin: Clean dry and intact with no rash, purpura, petechiae, vesicles or pustules. Backs/flank: No CVA tenderness, no midline spinal tenderness, no deformity. Psych: Normal mood and affect. No SI, HI or acute psychosis. Const Vital Signs: 05/10/24 19:52 05/10/24 20:40 05/10/24 20:45 Temperature 98.7 F Temperature Source Oral Pulse Rate 111 H 115 H 111 H Respiratory Rate 18 20 H 18 Respiratory Effort Blood Pressure 168/98 H 135/63 H Blood Pressure Mean 121 87 Pulse Ox 96 96 Oxygen Delivery Method Room Air Room Air 05/10/24 20:46 05/10/24 20:46 05/10/24 21:00 Temperature Temperature Source Pulse Rate 119 H Respiratory Rate 18 Respiratory Effort Normal Non-Labored Blood Pressure 125/92 H Blood Pressure Mean 103 Pulse Ox 96 Oxygen Delivery Method Room Air Room Air 05/10/24 22:00 05/10/24 23:00 05/10/24 23:52 Temperature 98.6 F Temperature Source Oral Pulse Rate 106 H 105 H Respiratory Rate 22 H Respiratory Effort Blood Pressure 94/69 Blood Pressure Mean 77 Pulse Ox 97 93 Oxygen Delivery Method Room Air Room Air Positive obese Nutritional Appearance: obese <Dr. Mike Nix DO - Last Filed: 05/11/24 00:28> Physical Exam Const Vital Signs: 05/10/24 19:52 05/10/24 20:40 05/10/24 20:45 Temperature 98.7 F Temperature Source Oral Pulse Rate 111 H 115 H 111 H Respiratory Rate 18 20 H 18 Respiratory Effort Blood Pressure 168/98 H 135/63 H Blood Pressure Mean 121 87 Pulse Ox 96 96 Oxygen Delivery Method Room Air Room Air 05/10/24 20:46 05/10/24 20:46 05/10/24 21:00 Temperature Temperature Source Pulse Rate 119 H Respiratory Rate 18 Respiratory Effort Normal Non-Labored Blood Pressure 125/92 H Blood Pressure Mean 103 Pulse Ox 96 Oxygen Delivery Method Room Air Room Air 05/10/24 22:00 05/10/24 23:00 05/10/24 23:52 Temperature 98.6 F Temperature Source Oral Pulse Rate 106 H 105 H Respiratory Rate 22 H Respiratory Effort Blood Pressure 94/69 Blood Pressure Mean 77 Pulse Ox 97 93 Oxygen Delivery Method Room Air Room Air MDM <RICO Azar - Last Filed: 05/10/24 22:29> MDM Lab Data Labs: Laboratory Results - last 24 hr 05/10/24 05/10/24 20:12 23:40 WBC 7.9 RBC 5.02 Hgb 12.3 L Hct 40.7 MCV 81.1 MCH 24.5 L MCHC 30.2 L RDW Std Deviation 46.4 H RDW Coeff of Kenneth 15.8 H Plt Count 142 L MPV 9.2 Immature Gran % (Auto) 0.400 Neut % (Auto) 79.1 H Lymph % (Auto) 13.4 L Lynn % (Auto) 5.4 Eos % (Auto) 1.4 Baso % (Auto) 0.3 Absolute Neuts (auto) 6.2 Absolute Lymphs (auto) 1.06 Nucleated RBC % 0 Sodium 136 Potassium 3.9 Chloride 105 Carbon Dioxide 28.0 Anion Gap 3 L BUN 7 Creatinine 0.83 Est GFR (MDRD) Af Amer 136 Est GFR (MDRD) Non-Af 113 BUN/Creatinine Ratio 8.5 L Glucose 143 H Calcium 9.2 Troponin I High Sens 5 6 B-Natriuretic Peptide 12.4 Radiography Diagnostic Testing: Clinical Impression(s) from Imaging Studies Chest X-Ray 05/10/24 21:20 IMPRESSION: Patchy bibasilar opacities may represent edema and/or infection. Electronically Signed: Julio César Boone MD at 22:14 EDT , EKG Sinus tachycardia: Attestation: I personally reviewed and interpreted this EKG as follows: Interpretation: Sinus Rhythm Comments: Sinus tachycardia with a rate of 107 bpm, [place] interval 162 ms, QRS duration 98 ms, no acute ST elevation, no acute infarct noted. Treatment and Re-Evaluation :: Differential diagnosis includes however is not limited to: Community-acquired pneumonia, COVID-19, flu Hillary, RSV, CHF, ACS, IA, sequelae of obstructive sleep apnea Patient does appear dyspneic, tachypneic, patient is tachycardic at a rate of 107 bpm. Patient is able speak complete senses. Presenting to the emergency department for ongoing shortness of breath for the last 2 days. Patient will receive a cardiac workup as well as a two-view chest x-ray. Patient will have breathing treatments, IV steroids. All radiologic examinations were read, reviewed by the emergency department attending. From these reads, a plan of care will be put in place. Patient's laboratory values show a normal CBC, hemoglobin 12.3 which is stable. Patient's chemistries were unremarkable, troponin was negative. Patient's BNP was -12.4. Patient was found well to treatments, IV steroids. <Dr. Mike Nix, DO - Last Filed: 05/11/24 00:28> [facility] Narrative Medical decision making narrative: I have personally performed a face to face assessment of the patient and have reviewed the GURJIT Note. I performed a substantive portion of the visit including all aspects of the following. My benavides findings include: History: Patient presents with shortness of breath that has been getting worse since yesterday. Patient states it began rather suddenly. Patient states he has sharp pain all over. Patient states it has been constant. Patient states nothing makes it better nothing makes it worse. Patient admits to a fever of 101.3 at home. Patient admits to some cough but denies any sputum production. Patient mitts to diffuse myalgias. Exam: Vital signs are stable except for a mild tachycardia of 111 and an elevated blood pressure 168/98. Patient is afebrile. Patient is in no acute distress. Oral mucosa is pink and moist. Neck is supple. Trachea is midline. There is no JVD. Heart was regular tachycardic. Lungs showed scattered rhonchi and wheezing bilaterally. There is good respiratory effort noted. Abdomen is soft. Bowel sounds are normal. There is no tenderness. Cranial nerves II through XII are intact. There are no focal motor or sensory deficits noted. Medical Decision Making: Differential diagnosis includes pneumonia, bronchitis, viral illness, reactive airway disease, cardiac dysrhythmia, cardiac ischemia, and congestive heart failure. EKG will be obtained to assess for cardiac dysrhythmia and cardiac ischemia. Chest x-ray will be obtained to assess for pneumonia and congestive heart failure. CBC will be obtained to assess for leukocytosis and anemia. Basic metabolic profile will be obtained to assess for electrolyte abnormality and renal function. High-sensitivity troponin will be obtained to assess for cardiac ischemia. 2-hour repeat high-sensitivity troponin will be obtained to assess for ongoing cardiac ischemia. BNP will be obtained to assess for congestive heart failure. Over 19, influenza, and RSV PCR will be obtained to assess for viral illness. Patient was given a DuoNeb aerosol here. Patient was given a dose of Solu- Medrol here. Patient was feeling better after this but noted that he still felt like he was having some wheezing. Patient was given a repeat albuterol aerosol. EKG was obtained. On my independent interpretation, shows sinus tachycardia with a rate of 107. [place] interval, QRS interval, and QTc intervals are all within normal limits. [place] is normal. There are no acute ST or T wave changes noted. PA and lateral chest x-ray was obtained. There are 2 views. On my independent interpretation, lung mueller show patchy bibasilar opacities which may represent edema and/or infection. There is normal cardiac silhouette. Bony thorax is normal. Radiologist also interpreted the x-ray and agrees. CBC was reviewed. Platelets were slightly low at 142. The remainder is within normal limits. Basic metabolic profile was reviewed and was within normal limits. Initial high-sensitivity troponin was reviewed and was normal at 5. BNP was reviewed and was normal at 12.4. COVID-19 PCR was reviewed and was negative. Influenza PCR was reviewed and was negative for influenza A and influenza B. RSV PCR was reviewed and was negative. 2-hour repeat high-sensitivity troponin was reviewed and was normal at 6. Patient was started on Rocephin and Zithromax. Patient was able to ambulate here in the emergency department without difficulty. Patient's oxygen saturation remained above 91% on room air. Patient was given a prescription for Zithromax. Patient was instructed to follow-up with his primary care physician in 3 to 5 days. Patient was instructed to return if worse in any way. Patient understood and was agreeable with plan. All questions were answered. Lab Data Labs: Laboratory Results - last 24 hr 05/10/24 05/10/24 20:12 23:40 WBC 7.9 RBC 5.02 Hgb 12.3 L Hct 40.7 MCV 81.1 MCH 24.5 L MCHC 30.2 L RDW Std Deviation 46.4 H RDW Coeff of Kenneth 15.8 H Plt Count 142 L MPV 9.2 Immature Gran % (Auto) 0.400 Neut % (Auto) 79.1 H Lymph % (Auto) 13.4 L Lynn % (Auto) 5.4 Eos % (Auto) 1.4 Baso % (Auto) 0.3 Absolute Neuts (auto) 6.2 Absolute Lymphs (auto) 1.06 Nucleated RBC % 0 Sodium 136 Potassium 3.9 Chloride 105 Carbon Dioxide 28.0 Anion Gap 3 L BUN 7 Creatinine 0.83 Est GFR (MDRD) Af Amer 136 Est GFR (MDRD) Non-Af 113 BUN/Creatinine Ratio 8.5 L Glucose 143 H Calcium 9.2 Troponin I High Sens 5 6 B-Natriuretic Peptide 12.4 Radiography Diagnostic Testing: Clinical Impression(s) from Imaging Studies Chest X-Ray 05/10/24 21:20 IMPRESSION: Patchy bibasilar opacities may represent edema and/or infection. Electronically Signed: Julio César Boone MD at 22:14 EDT , Discharge Plan Triage Chief Complaint: General Illness ED Midlevel Provider: Viraj Williamson ED Provider: Mike Nix Dx/Rx/DC Orders Clinical Impression: Pneumonia, Tobacco dependence Instructions: ED Pneumonia (Adult) Prescriptions: New azithromycin 250 mg tablet 250 mg PO DAILY Qty: 4 0RF No Action (DME) bipap machine See Rx Instructions .ROUTE .MEDSUPPLY Rx Instructions: Please service machine as malfunctioning due to drop from bed side table. albuterol sulfate [Ventolin HFA] 90 mcg/actuation HFA aerosol inhaler 1 - 2 puff inhalation Q4H PRN PRN (Reason: Wheezing) Qty: 1 3RF Primary Care Provider: Maddison Caldwell Referrals: Maddison Caldwell MD [Primary Care Provider] - Print Language: [place]se Disposition Disposition: Home, Self Care
[2024-05-10] MEDS: Ipratropium/Albuterol Sulfate 3 ML AMPUL.NEB INHALATION (20:39)
[2024-05-10] MEDS: Ibuprofen 600 MG Tablet PO (20:39)
[2024-05-10] MEDS: MethylPREDNISolone 125 MG/2 ML Vial 60 MG IV (20:42)
[2024-05-10 20:58] LABS: Anion Gap 3 (5-15); BUN 7 mg/dL (7-18); BUN/Creat Ratio 8.5 RATIO (10-20); Calcium,Total 9.2 mg/dL (8.5-10.1); Chloride 105 mmol/L (98-107); Creatinine, Serum 0.83 mg/dL (0.70-1.30); EST Glomerular Filtration Rate 113 mL/min (>60); Est Glom Filt Rate - Afr Amer 136 mL/min (>60); Glucose 143 mg/dL (74-106); Potassium 3.9 mmol/L (3.5-5.1); Sodium Level 136 mmol/L (136-145); Troponin-I HS (w/2H Reflex) 5 pg/mL (3.0-78.0)
[2024-05-10 21:12] LABS: BNP,B-Type NATRIURETIC PEPTIDE 12.4 pg/mL (0-100)
--- NOTE | 2024-05-10 21:20 | RAD_ITS ---
INDICATION: cough EXAMINATION/TECHNIQUE: X-RAY - XR Chest 2 Views COMPARISON: None. FINDINGS: Patchy bibasilar opacities. The cardiomediastinal silhouette is unremarkable. No pleural effusion or pneumothorax. No acute osseous abnormalities. RAD/Chest PA and Lateral IMPRESSION: Patchy bibasilar opacities may represent edema and/or infection. Electronically Signed: Julio César Boone MD at 22:14 EDT ,
[2024-05-10 22:15] LABS: Reflex Troponin-HS? (from REC) Y
[2024-05-10] MEDS: Ceftriaxone 2 GM in 0.9% Normal Saline (50mL MB+) 50 ML IV (23:56)
[2024-05-11] VITALS: BP 130/71; PULSE 101; RESP 22; TEMP 37; O2SAT 94
[2024-05-11 00:17] LABS: Troponin-I HS 6 pg/mL (3.0-78.0)
[2024-05-11] MEDS: Azithromycin 500 MG in Dextrose 5%-Water (250mL Bag) 250 ML 250 MG IV (00:38)
== END 2024-05-11 01:45 | disposition home or self-care (01) ==
PROVIDERS: Nurse Practitioner; Emergency Provider Emergency Medicine; PCP Internal Medicine; Visit Provider Emergency Medicine
DX: J18.9 Pneumonia, unspecified organism (principal); F17.210 Nicotine dependence, cigarettes, uncomplicated
CPT/HCPCS: 71046; 80048; 83880; 84484; 85025; 87631; 93005; 94640; 96365; 96367; 96375; 99284; A4216; J0696

== ENCOUNTER 2025-05-09 11:31 | Emergency (ER) | payer MEDICAID, SELFPAY ==
[2025-05-09] VITALS (8 sets, daily range): BP systolic 131–168; BP diastolic 66–100; PULSE 62–74; RESP 14–28; TEMP 36.6–36.8; O2SAT 97–99
--- NOTE | 2025-05-09 12:04 | CT_ITS ---
PROCEDURE: ABDOMEN/PELVIS WITHOUT CONT 05/09/2025 REASON FOR EXAM: BACK PAIN, ASSESS FOR UROLITHIASIS TECHNIQUE: Procedure Code: CTABDPEL Modality: CT Procedure: ABDOMEN/PELVIS WITHOUT CONT Noncontrast technique limits evaluation of the abdominal and pelvic viscera. Coronal and Sagittal reconstruction series were provided. One or more dose reduction techniques were used (e.g., Automated exposure control, adjustment of the mA and/or kV according to patient size, use of iterative reconstruction technique). RADIATION DOSE SUMMARY: CTDlvol: 35 mGy DLP: 1893 mGycm COMPARISON: None FINDINGS: Lung bases: Patchy airspace disease the left lower lobe. Liver: The liver is enlarged and diffusely fatty infiltrated. Gallbladder: Normal. Spleen: Spleen is enlarged at 18.2 cm. Pancreas: Normal Adrenals: Normal Kidneys: Normal Bladder: Normal. Reproductive Organs: Prostate is unremarkable. Bowel: Stomach is normal. Small bowel is normal. Scattered colonic diverticula are present. Portions of the transverse colon are excluded from the aitpr-dy-tayn anteriorly. Appendix: Normal Lymph nodes: Normal. Vasculature: Normal Peritoneum / Retroperitoneum: No free air, free fluid or mass. Bones: Normal CT/Abdomen/Pelvis without Cont IMPRESSION: 1. Patchy airspace disease left lower lobe. Consider pneumonia. 2. Enlarged, diffusely fatty infiltrated liver. 3. Splenomegaly 4. No calculus or collecting system dilation involving either kidney. 5. Normal appendix. Reading Location: [id number]
--- NOTE | 2025-05-09 12:05 | EKG12_ITS ---
Test Reason : SOB/CP Blood Pressure : */* mmHG Vent. Rate : 77 BPM Atrial Rate : 77 BPM P-R Int : 160 ms QRS Dur : 98 ms QT Int : 370 ms P-R-T Axes : 22 68 47 degrees QTcB Int : 418 ms Normal sinus rhythm with sinus arrhythmia Normal ECG Confirmed by JAROCHO SANCHEZ, BROOKLYN ([id number]), fan mail editor BHUPINDER LOYOLA ([id number]) on 05/12/2025 6:22:19 AM Referred By: Confirmed By: BROOKLYN AVENDAÑO MD
--- NOTE | 2025-05-09 12:14 | ED.VIS.DYS ---
HPI History of Present Illness Chief Complaint: Shortness of Breath Narrative Narrative: Chief complaint and HPI: 34-year-old male with past medical history of MARIA TERESA, varicose veins, morbid obesity, tobacco abuse presents for evaluation of multiple complaints. Patient states he woke up this morning with shortness of breath. He denies any URI symptoms such as fever, chills, headache, congestion, sore throat, cough. Patient states he smokes a pack per day. States he has took some nebulizer treatments at home with no relief. States for the past several days he has been having low back pain which started 1 day after he woke up. 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 Triage note states it radiates down his legs although he denies this to me. He states his legs have just been crampy for the past several days. States he has baseline swelling in which she does not wear compression stockings. No history of CHF. He states he is having increased urination without dysuria. He denies any chest pain although was told triage she was having chest burning. He denies any abdominal pain, nausea, vomiting. Denies any numbness or tingling. Denies any weakness. Denies any urinary or bowel incontinence. Patient states she does not wear her CPAP machine. Review of systems: See HPI Medications: As listed on the chart Allergies: As listed on the chart PFSH: Per chart Vital signs: As listed on the chart. Reviewed. Physical exam: Gen: A&O x3, NAD Head: Normocephalic, atraumatic Eyes: No sclera icterus, conjunctiva clear, PERRL, EOMI ENT: TMs clear BL, moist mucous membranes, posterior oropharynx unremarkable, uvula midline Neck: Trachea midline, Full ROM CV: RRR, no murmurs, bilateral peripheral but nonpitting edema of the lower extremities Resp: Lungs difficult to auscultate secondary to body habitus, clear to auscultation without wheezing GI: Morbidly obese, abd soft, non-distended, non-tender, no r/r/g Musc: Full ROM, no deformity, no midline spinal tenderness, no bony step-off, tenderness to palpation of the bilateral paraspinal musculature without signs of trauma or infection Skin: Warm, dry Neuro: Alert, oriented, grossly intact, sensation intact Psych: Cooperative, appropriate mood and affect [facility] Medical History (Updated 05/19/24 @ 00:01 by Loco Singh) Varicose veins of bilateral lower extremities with other complications Chest pain MARIA TERESA (obstructive sleep apnea) Home Medications ?Medication ?Instructions ?Recorded ?Last Taken ?Type bipap machine 05/08/24 Unknown History albuterol sulfate 90 mcg/actuation 1 - 2 puff inhalation Q4H PRN PRN 05/11/24 Unknown Rx aerosol inhaler (Ventolin HFA) Wheezing ##1 azithromycin 250 mg tablet 250 mg PO DAILY #4 TABLETS 05/11/24 Unknown Rx Allergy/AdvReac Type Severity Reaction Status Date / Time clindamycin Allergy Severe Other Verified 05/09/25 11:37 Social History (Updated 05/08/24 @ 16:05 by Carla Hull RN) adopted: No household members: family housing: house number of children: 3 current occupational status: employed 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: No pets and animals: Yes pets and animals: dog(s) leisure activities: other history of recent travel: No sexually active: Yes Smoking Status: Current every day smoker tobacco type: cigarettes second hand exposure: Yes alcohol intake: former details: occasionally substance use type: former substance user well-balanced diet: rarely or never caffeine: Yes eating out: 1-3 times/week during the past year weight has: increased > 10 lbs what type of physical activity do you participate in: none seatbelt use: never do you feel safe at home: Yes EXAM Physical Exam Const Vital Signs: 05/09/25 11:32 05/09/25 11:32 05/09/25 11:36 Temperature 98 F 98 F Temperature Source Oral Oral Pulse Rate 74 74 Respiratory Rate 28 H 28 H Respiratory Effort Normal Respiratory Depth Normal Respiratory Pattern Normal Blood Pressure 153/100 H 153/100 H Blood Pressure Mean 117 117 Pulse Ox 97 97 Oxygen Delivery Method Room Air Room Air Room Air 05/09/25 12:32 05/09/25 12:35 05/09/25 12:36 Temperature 98.2 F Temperature Source Oral Pulse Rate 71 67 62 Respiratory Rate 16 20 H 14 Respiratory Effort Respiratory Depth Respiratory Pattern Normal Blood Pressure 131/66 H 131/66 H Blood Pressure Mean 87 87 Pulse Ox 97 99 Oxygen Delivery Method Room Air Room Air 05/09/25 14:00 Temperature Temperature Source Pulse Rate 70 Respiratory Rate 16 Respiratory Effort Respiratory Depth Respiratory Pattern Blood Pressure 168/67 H Blood Pressure Mean 100 Pulse Ox 98 Oxygen Delivery Method Room Air MDM MDM MDM Narrative Medical decision making narrative: 34-year-old male with past medical history of MARIA TERESA, varicose veins, morbid obesity, tobacco abuse presents for evaluation of multiple complaints. Patient states he woke up this morning with shortness of breath. Denies any URI symptoms. Associated symptoms is chronic bilateral lower extremity swelling and a couple days of back pain with urinary frequency. Patient noncompliant with CPAP. Differential diagnosis includes but is not limited to untreated MARIA TERESA, early viral illness, CHF, ACS, PE, pneumonia, UTI, urolithiasis, back strain. NS bolus, Toradol, DuoNeb ordered for symptoms. Workup ordered. CBC without leukocytosis. Patient has baseline anemia of 11.4. Platelets unremarkable. D-dimer elevated 0.63. Cannot rule out PE. CTA chest ordered. CMP unremarkable. Troponin unremarkable. BNP unremarkable. CT abdomen pelvis shows patchy airspace disease in the left lower lobe. Consider pneumonia. Enlarged diffuse fatty liver. Splenomegaly. No urolithiasis. Normal appendix. CT of the chest negative for PE. Patchy opacity with surrounding tree-in-bud nodularity within the lung base. Additionally there are scattered nodules within the right middle and lower lung. Findings are concerning for underlying infectious/inflammatory process. Diffuse hepatic steatosis and hepatomegaly. UA negative for UTI. Patient's shortness of breath may be secondary to possible early pneumonia. Will place on antibiotics. No clear etiology for his urinary frequency. His back pain has improved with Toradol. I suspect a back spasm/strain. Follow-up with primary care physician. Return precautions explained. He confirmed understand the plan. Patient stable to discharge home. EKG: Interpreted by me/EM physician: EKG shows normal sinus rhythm with arrhythmia. Heart rate 77 Diagnostic: Interpreted by me/EM physician: Chest x-ray without pneumonia, effusion, cardiomegaly, pneumothorax. Radiology in agreement. Impression: 1. Shortness of breath with possible left lower lobe pneumonia 2. Lumbar back spasm/strain Lab Data Labs: Laboratory Results - last 24 hr 05/09/25 05/09/25 12:25 15:00 WBC 7.9 RBC 4.61 Hgb 11.4 L Hct 38.1 L MCV 82.6 MCH 24.7 L MCHC 29.9 L RDW Std Deviation 49.4 H RDW Coeff of Kenneth 16.5 H Plt Count 156 MPV 9.6 Immature Gran % (Auto) 0.400 Neut % (Auto) 67.8 Lymph % (Auto) 25.0 [place] % (Auto) 4.4 Eos % (Auto) 2.0 Baso % (Auto) 0.4 Absolute Neuts (auto) 5.3 Absolute Lymphs (auto) 1.97 Nucleated RBC % 0 D-Dimer Quant (PE/DVT) 0.63 H* Sodium 138 Potassium 4.3 Chloride 104 Carbon Dioxide 25.7 Anion Gap 8 BUN 12 Creatinine 0.65 L Est GFR (MDRD) Non-Af 126 BUN/Creatinine Ratio 17.9 Glucose 93 Calcium 8.5 Total Bilirubin 0.42 AST 30 ALT 35 Alkaline Phosphatase 77 Troponin T High Sens < 6 NT pro BNP II 122 Total Protein 7.6 Albumin 3.5 Globulin 4.1 Albumin/Globulin Ratio 0.8 L Urine Color Yellow Urine Clarity Clear Urine pH 6.0 Ur Specific [place] 1.015 Urine Protein 30 H Urine Glucose (UA) Normal Urine Ketones Negative Urine Occult Blood Negative Urine Nitrite Negative Urine Bilirubin Negative Urine Urobilinogen 1 H Ur Leukocyte Esterase Negative Radiography Diagnostic Testing: Clinical Impression(s) from Imaging Studies Abdomen/Pelvis CT 05/09/25 12:04 IMPRESSION: 1. Patchy airspace disease left lower lobe. Consider pneumonia. 2. Enlarged, diffusely fatty infiltrated liver. 3. Splenomegaly 4. No calculus or collecting system dilation involving either kidney. 5. Normal appendix. Reading Location: [facility] Chest X-Ray 05/09/25 12:50 IMPRESSION: No radiographic evidence of acute cardiopulmonary disease. Reading Location: [facility] Chest CTA 05/09/25 12:52 IMPRESSION: No CTA evidence of any filling defect within main pulmonary trunk as well as right and left main pulmonary artery. Evaluation of segmental and subsegmental pulmonary arteries is severely limited due to breathing artifact. Patchy opacity with surrounding tree-in-bud nodularity within left lung base. Additionally there are scattered nodules within right middle and lower lung as detailed above. Findings are concerning for underlying infectious/inflammatory process. Close attention on short-term follow-up imaging is recommended to ensure resolution. Diffuse hepatic steatosis and hepatomegaly. Reading Location: [facility] Discharge Plan Triage Chief Complaint: Shortness of Breath ED Provider: Faisal Cr Dx/Rx/DC Orders Prescriptions: No Action (DME) bipap machine See Rx Instructions .ROUTE .MEDSUPPLY Rx Instructions: Please service machine as malfunctioning due to drop from bed side table. azithromycin 250 mg tablet 250 mg PO DAILY Qty: 4 0RF albuterol sulfate [Ventolin HFA] 90 mcg/actuation HFA aerosol inhaler 1 - 2 puff inhalation Q4H PRN PRN (Reason: Wheezing) Qty: 1 0RF Primary Care Provider: Maddison Caldwell Referrals: Maddison Caldwell MD [Primary Care Provider, Internal Medicine - [facility]] Print Language: Frisian
[2025-05-09 12:36] LABS: Hematocrit 38.1 % (40-54); Hemoglobin 11.4 g/dL (13.0-16.5); Immature Granulocytes Count 0.030 X10^3/uL (0.0-0.0); Mean Corp Hgb Conc 29.9 g/dL (32-36); Mean Corpuscular Volume 82.6 fL (80-94); Mean Platelet Vol. 9.6 fl (6.2-12.0); NRBC Flagged by Analyzer 0 % (0-5); Platelet Count 156 K/mm3 (150-450); RBC Distribution Width CV 16.5 % (11.6-14.6); RBC Distribution Width SD 49.4 fl (35.1-43.9); Red Blood Count 4.61 M/mm3 (4.6-6.2); White Blood Count 7.9 K/mm3 (4.4-11.0)
[2025-05-09 12:49] LABS: D-Dimer Quantitative (DVT/PE) 0.63 FEU/ug/m (0.27-0.49)
--- NOTE | 2025-05-09 12:50 | RAD_ITS ---
PROCEDURE: CHEST PA AND LATERAL 05/09/2025 REASON FOR EXAM: SHORTNESS OF BREATH TECHNIQUE: Procedure Code: RADCXR Modality: DX Procedure: CHEST PA AND LATERAL COMPARISON: 05/10/2024 FINDINGS: Cardiomediastinal silhouette pulmonary vasculature and bony thorax are within normal limits. No focal infiltrates or effusion. RAD/Chest PA and Lateral IMPRESSION: No radiographic evidence of acute cardiopulmonary disease. Reading Location: [place] [id number]
--- NOTE | 2025-05-09 12:52 | CT_ITS ---
PROCEDURE: CTA CHEST W/WO CONTRAST 05/09/2025 REASON FOR EXAM: PE TECHNIQUE: Procedure Code: [id number] Modality: CT Procedure: CTA CHEST W/WO CONTRAST Multiplanar Sagittal and Coronal images were obtained. CONTRAST: Isovue-300 VOLUME: 90 mL One or more dose reduction techniques were used (e.g., Automated exposure control, adjustment of the mA and/or kV according to patient size, use of iterative reconstruction technique). RADIATION DOSE SUMMARY: CTDlvol: 28.8 mGy DLP: 1044 mGycm COMPARISON: CT chest without contrast 02/15/2021 # of known CTs in the past 12 months: Not documented # of known Cardiac Nuclear Medicine Studies in the past 12 months: Not documented FINDINGS: Lungs and Airways: Patchy opacity measuring 1.9 cm with surrounding nodules and tree-in-bud nodularity within left lung base (series 601 image 193. Additional scattered right basilar atelectasis/developing infiltrate is also visualized. Right middle lobe nodule abutting fissure measuring 1 cm (series 601, image 150 close. Right lower lung 4 mm lung nodules additional scattered nodules are visualized measuring less than 3 mm. Pleura: No pleural effusion. No pneumothorax. Bibasilar pleural thickening. Heart: Normal heart size. No pericardial effusion. Pericardium: No thickening. Coronary arteries: Unremarkable. Thoracic Aorta: No thoracic aortic aneurysm or dissection. Pulmonary Vessels: No large central filling defects. Contrast timing was optimized for evaluation of the aorta. Mediastinum: No mediastinal hilar or axillary lymphadenopathy. Thyroid:No nodules.. Upper Abdomen: Diffuse hepatic steatosis and hepatomegaly. Splenomegaly. Bones: Unremarkable CT/CTA Chest W/WO Contrast IMPRESSION: No CTA evidence of any filling defect within main pulmonary trunk as well as ri ght and left main pulmonary artery. Evaluation of segmental and subsegmental pulmonary arteries is severely limited due to breath ing artifact. Patchy opacity with surrounding tree-in-bud nodularity within left lung base. Additionally there are scattered nodules within right middle and lower lung as detailed above. Findings are concerning for un derlying infectious/inflammatory process. Close attention on short-term follow-up imaging is recommended to ensure resolution. Diffuse hepatic steatosis and hepatomegaly. Reading Location: [id number]
[2025-05-09 13:13] LABS: AST(SGOT) 30 U/L (<=37); Alanine Aminotransfer ALT/SGPT 35 U/L (<=46); Albumin, Serum 3.5 g/dL (3.5-5.0); Alkaline Phosphatase 77 U/L (40-129); Anion Gap 8 (5-15); BUN 12 mg/dL (4-19); BUN/Creat Ratio 17.9 RATIO (10-20); Calcium,Total 8.5 mg/dL (7.6-11.0); Carbon Dioxide 25.7 mmol/L (21.0-32.0); Chloride 104 mmol/L (98-108); Globulin 4.1 g/dL (2.2-4.2); Glucose 93 mg/dL (70-99); Potassium 4.3 mmol/L (3.3-5.1); Pro- Brain NATRIURETIC PEPTIDE 122 pg/mL (<=450)
[2025-05-09 13:14] LABS: Troponin T High Sensitivity < 6 ng/L (<=22)
[2025-05-09 15:11] LABS: Red Blood Cells-Urine 0 SEEN /hpf (0-5)
[2025-05-09 15:19] LABS: Color, Urine Yellow (Yellow); Glucose, Dipstick Normal (Normal); Ketone-Dipstick Negative (Negative); Leukocyte Esterase-Dipstick Negative /ul (Negative); Nitrite-Dipstick Negative (Negative); Occult Blood-Urine Negative /ul (Negative); Protein-Dipstick 30 mg/dl (Negative); Specific Gravity, Urine 1.015 (1.002-1.030); Urine Bilirubin Dipstick Negative (Negative)
[2025-05-09 15:29] LABS: Mucous, Urine 1+ /hpf (<or=2+); Squamous Epithelial Cells - UA 0-5 SEEN /hpf (0-5)
== END 2025-05-09 15:40 | disposition home or self-care (01) ==
PROVIDERS: Emergency Provider Surgery; PCP Internal Medicine; Visit Provider Surgery
DX: R06.02 Shortness of breath (principal); E66.01 Morbid (severe) obesity due to excess calories; S39.012A Strain of muscle, fascia and tendon of lower back, initial encounter; M62.830 Muscle spasm of back; X58.XXXA Exposure to other specified factors, initial encounter; G47.33 Obstructive sleep apnea (adult) (pediatric); F17.210 Nicotine dependence, cigarettes, uncomplicated; Z91.198 Patient's noncompliance with other medical treatment and regimen for other reason
CPT/HCPCS: 71046; 71275; 74176; 80053; 81001; 83880; 84484; 85025; 85379; 93005; 94640; 96374; 99284; Q9967; A4216

== ENCOUNTER → 2025-06-30 | Outpatient (CLI) | payer MEDICAID, SELFPAY ==
[2025-06-30 09:55] LABS: AST(SGOT) 41 U/L (<=37); Alanine Aminotransfer ALT/SGPT 46 U/L (<=46); Albumin, Serum 3.8 g/dL (3.5-5.0); Alkaline Phosphatase 104 U/L (40-129); Anion Gap 8 (5-15); BUN 14 mg/dL (4-19); BUN/Creat Ratio 19.3 RATIO (10-20); Calcium,Total 9.1 mg/dL (7.6-11.0); Carbon Dioxide 28.4 mmol/L (21.0-32.0); Chloride 102 mmol/L (98-108); Cholesterol 145 mg/dL (<=200); Globulin 4.6 g/dL (2.2-4.2); Glucose 148 mg/dL (70-99); Low Density Lipoprotein Calc. 71 mg/dL; Potassium 4.4 mmol/L (3.3-5.1); Triglycerides 198 mg/dL; Very Low Density Lipoprotein 40 mg/dL (5-40); cholesterol:hdl ratio screen 3.57
== END | disposition home or self-care (01) ==
LOC: LAB 08:55
PROVIDERS: PCP Internal Medicine; Referring Provider Internal Medicine; Visit Provider Internal Medicine
DX: R73.9 Hyperglycemia, unspecified (principal); E88.818 Other insulin resistance; G47.33 Obstructive sleep apnea (adult) (pediatric); Z13.220 Encounter for screening for lipoid disorders
CPT/HCPCS: 36415; 80053; 80061; 83036; 83525; 84443